=== PATIENT | male | born 1955 | race Caucasian/White ===

== ENCOUNTER 2019-08-19 18:43 | Inpatient (IN) ==
[2019-08-19] MEDS ORDERED: MoRPHine SULFATE 4 MG/ML 1 ML CARP\\VIAL IV PRN (19:02)
[2019-08-19] MEDS ORDERED: MoRPHine SULFATE 10 MG/ML CARP/VIAL IV STA (19:02)
[2019-08-19] MEDS ORDERED: ACETAMINOPHEN 1,000 MG/100 ML VIAL IV STA (19:06)
[2019-08-19] MEDS ORDERED: PROMETHAZINE HCL 12.5 MG in SODIUM CHLORIDE 0.9% 50 ML IV STA (19:07)
[2019-08-19] MEDS ORDERED: SODIUM CHLORIDE 0.9% 500 ML IV SCH (19:15)
[2019-08-19] MEDS ORDERED: PROMETHAZINE 12.5 MG/50.5 ML NSS IV ONE (19:29)
[2019-08-19 19:57] LABS: Basophils # (auto) 0.02 K/uL (0-0.2); Basophils % (auto) 0.3 %; Eosinophils # (auto) 0.11 K/uL (0-0.5); Eosinophils % (auto) 1.9 %; Hematocrit (blood only) 43.6 % (42-52); Hemoglobin 14.5 g/dL (14.0-18.0); Lymphocytes # (auto) 1.32 K/uL (1.2-3.4); Lymphocytes % (auto) 22.4 %; Mean Corpuscular Hemoglobin 27.3 pg (25-34); Mean Corpuscular Hgb Conc 33.3 g/dL (32-36); Mean Platelet Volume 9.2 fL (7.4-10.4); Monocytes % (auto) 6.8 %; Neutrophils # (auto) 4.04 K/uL (1.4-6.5); Neutrophils % (auto) 68.6 %; Platelet Count 229 K/uL (130-400); RDW Standard Deviation 41.9 fL (36.4-46.3); Red Blood Count 5.32 M/uL (4.7-6.1); White Blood Count 5.89 K/uL (4.8-10.8)
--- NOTE | 2019-08-19 20:06 | Emergency Department Note ---
Entered by Kimberly Ceron acting as a scribe for History of Present Illness General Chief complaint: Kidney Stone Stated complaint: ABD PAIN Time Seen by Provider: 08/19/19 18:53 Source: patient Mode of arrival: ambulatory Limitations: no limitations History of Present Illness Provider complaint: Kidney stone Onset (ago): day(s) 9 Location: abdomen Radiation: non-radiation Pain Consistency: + other (worsening) Maximum Pain Intensity: 10 Current Pain Intensity: 10 Quality: + other (kidney stone) Associated symptoms: + other (Additional symptoms: abdominal bloating, abnormal bowel movements, dark and burning urine); no nausea/vomiting Treatments prior to arrival: none The patient is a 63 year old male with a history of COPD, hypertension, restless leg syndrome, and chronic back pain who presents to the Emergency Room with complaints of a worsening kidney stone starting 9 days ago. Per the patient's medical records, the patient was diagnosed with a 7 mm stone in the right renal pelvis on August 09. The patient then reportedly saw urology on August 12 and was scheduled for a lithotripsy on August 21. The patient explains that he came to the ED today because his pain is worsening. He states that his pain is worse than the pain that brought him in 9 days ago and that is located all over his abdomen, worse on the right. He notes that it does not radiate to the back, and he currently rates it a 10/10. He mentions that he has not taken anything for his pain. The patient also complains of abdominal bloating, abnormal bowel movements, and dark, burning urine. He denies any nausea and vomiting. Per significant other, this episode has been ongoing since April. She reports that the patient has been intermittently passing stones but not getting everything out. The patient predicts that he has had 4-5 CTs since April, and he indicates that he has passed 6 kidney stones in his lifetime but never had intervention or lithotripsy. He states that he is currently on Cefdinir for UTI prevention. Home Medications Home Medications Medication Instructions Recorded Confirmed Type albuterol sulfate [Ventolin HFA] 2 puff INHALATION Q6H PRN 08/10/19 08/19/19 History amlodipine 5 mg PO QAM 08/10/19 08/19/19 History aspirin 81 mg PO .ON HOLD 08/10/19 08/19/19 History cefdinir 300 mg PO BID #20 cap 08/10/19 08/19/19 Rx cholecalciferol (vitamin D3) 2,000 unit PO QAM 08/10/19 08/19/19 History [Vitamin D3] fluticasone furoate-vilanterol 1 ea INHALATION QAM 08/10/19 08/19/19 History [Breo Ellipta] ibuprofen 200 mg PO Q6H PRN 08/10/19 08/19/19 History naproxen sodium [Aleve] 220 mg PO Q12H PRN 08/10/19 08/19/19 History omeprazole 20 mg PO QAM 08/10/19 08/19/19 History oxycodone 5 mg PO Q6H PRN #15 cap 08/10/19 08/19/19 Rx ropinirole 0.5 mg PO HS 08/10/19 08/19/19 History tamsulosin 0.4 mg capsule 0.4 mg PO HS #30 cap 08/13/19 08/19/19 Rx Allergies Allergy/AdvReac Type Severity Reaction Status Date / Time No Known Allergies Allergy Verified 08/13/19 15:24 Past Med/Surg History Medical History Adverse anesthesia outcome SEVERE NECK PAIN POST BACK SURGERY Chronic back pain COPD (chronic obstructive pulmonary disease) Hypertension Kidney stones CURRENT Restless leg syndrome Spinal stenosis Surgical History H/O hernia repair History of spinal surgery Hx of repair of left rotator cuff Hx of repair of right rotator cuff Family History Father Heart disease [place] Hypertension Mother Cancer Brain Sister Cancer Lung Social History Preferred Language: Greek Communication Ability: Effective Beliefs That Will Affect Care: None marital status: Current Living Situation: Spouse current occupational status: retired Feels Safe at Home: Yes Smoking Status: Former smoker Tobacco Type: cigarettes ; Hx Alcohol Use: Yes Alcohol type: beer and hard liquor Hx Substance Use: No Review of Systems See HPI for pertinent positives & negatives. and A total of 10 systems reviewed and were otherwise negative Physical Exam Vital Signs Vital Signs - 24 hr 08/19/19 18:46 08/19/19 19:03 08/19/19 20:43 Temperature 37.1 C Temperature Source Oral Pulse Rate 93 H Pulse Rate [Apical] 80 Pulse Rhythm [Apical] Regular Pulse Strength [Apical] Normal Respiratory Rate 18 20 Respiratory Effort / Characteristics Non-Labored Spontaneous Non-Labored Spontaneous Respiratory Depth Normal Respiratory Pattern Regular Blood Pressure 166/118 H Blood Pressure [Left Arm] 158/107 H Blood Pressure Mean 134 Blood Pressure Mean [Left Arm] 124 Blood Pressure Position Sitting Blood Pressure Position [Left Arm] Sitting Pulse Oximetry 96 98 98 Oxygen Delivery Method Room Air Room Air Room Air Sepsis Recent Fever Within 48 Hours No Sepsis New/Unexplained Change in Mental Status No Sepsis Action Taken by Nursing No Action Required GENERAL: Patient is in mild distress from pain. HEENT: No acute trauma, normocephalic atraumatic, mucous membranes moist, no nasal congestion, no scleral icterus. NECK: No stridor, no adenopathy, no meningismus, trachea is midline. LUNGS: Clear to auscultation bilaterally, no wheeze, no rhonchi, breath sounds equal. HEART: Without murmurs gallops or rubs, regular rate and rhythm. ABDOMEN: Soft, bowel sounds positive, no hernias, no peritonitis. Mildly tender along entire right and mid abdomen. BACK: Mild right flank discomfort to percussion. EXTREMITIES: No cyanosis or edema, full range of motion of all the joints without pain or difficulty, no signs for acute trauma. NEUROLOGIC: Oriented x 3, no acute motor or sensory deficits, no focal weakness. SKIN: No rash, no jaundice, no diaphoresis. Course Course 1856: The patient was evaluated in room A4B, and a complete history and physical examination were performed. 2138: I checked on the patient and updated him on his results. He verbalized agreement with the treatment plan. 2151: I discussed the patient's case with Dr. Alexandre Garcia. Dr. Schroeder will evaluate the patient for further management. Consultations Consultation #1: I discussed the patient's case with Dr. Alexandre Garcia. Dr. Schroeder will evaluate the patient for further management. Time: 21:52 Administered Medications Discontinued Medications Sodium Chloride (Nss) 500 mls @ 999 mls/hr IV .Q31M CARMEN Stop: 08/19/19 19:45 Last Infusion: 08/19/19 20:18 Dose: 0 mls/hr Documented by: [id number] Admin: 08/19/19 19:41 Dose: 999 mls/hr Documented by: [id number] Acetaminophen (Ofirmev) 1,000 mg in 100 mls @ 400 mls/hr IV NOW STA Stop: 08/19/19 19:20 Last Infusion: 08/19/19 20:18 Dose: 0 mls/hr Documented by: [id number] Admin: 08/19/19 19:39 Dose: 400 mls/hr Documented by: [id number] Promethazine HCl 12.5 mg/ (Sodium Chloride) 50.5 mls @ 202 mls/hr IV NOW STA Stop: 08/19/19 19:21 Last Infusion: 08/19/19 20:20 Dose: 0 mls/hr Documented by: [id number] Admin: 08/19/19 19:38 Dose: 202 mls/hr Documented by: [id number] Morphine Sulfate (Morphine Sulfate) 6 mg IV NOW STA Stop: 08/19/19 19:03 Last Admin: 08/19/19 19:39 Dose: 6 mg Documented by: [id number] Promethazine HCl (Phenergan) Confirm Administered Dose 12.5 mg IV .STK-MED ONE Stop: 08/19/19 19:30 Last Admin: 08/19/19 19:40 Dose: Not Given Documented by: [id number] Medical Decision Making Differential Diagnosis Differential diagnosis includes: renal colic, hydronephrosis, UTI, diverticulitis, viral illness, bowel obstruction, pancreatitis, musculoskeletal pain, IBD, failed outpatient treatment. Medical Records Attestation: I reviewed the patient's medical records. Home Medications Current Medication List: was personally reviewed by me Laboratory Data Attestation: I reviewed the patient's lab results. Result diagrams: 08/19/19 19:41 08/19/19 19:41 Lab Results 08/19/19 08/19/19 08/19/19 Range/Units 19:41 19:41 19:41 WBC 5.89 (4.8-10.8) K/uL RBC 5.32 (4.7-6.1) M/uL Hgb 14.5 (14.0-18.0) g/dL Hct 43.6 (42-52) % MCV 82.0 (80-100) fL MCH 27.3 (25-34) pg MCHC 33.3 (32-36) g/dL RDW Std Deviation 41.9 (36.4-46.3) fL RDW Coeff of Camryn 14.0 (11.5-14.5) % Plt Count 229 (130-400) K/uL MPV 9.2 (7.4-10.4) fL Immature Gran % (Auto) 0.0 % Neut % (Auto) 68.6 % Lymph % (Auto) 22.4 % Nuckolls % (Auto) 6.8 % Eos % (Auto) 1.9 % Baso % (Auto) 0.3 % Immature Gran # (Auto) 0.00 (0.00-0.02) K/uL Neut # (Auto) 4.04 (1.4-6.5) K/uL Lymph # (Auto) 1.32 (1.2-3.4) K/uL [place] # (Auto) 0.40 (0.11-0.59) K/uL Eos # (Auto) 0.11 (0-0.5) K/uL Baso # (Auto) 0.02 (0-0.2) K/uL Sodium 138 (136-145) mmol/L Potassium 3.4 L (3.5-5.1) mmol/L Chloride 102 (98-107) mmol/L Carbon Dioxide 29 (21-32) mmol/L Anion Gap 7.0 (3-11) BUN 12 (7-18) mg/dl Creatinine 0.99 (0.6-1.4) mg/dl Est Cr Clr Drug Dosing 99.8 ml/min Est GFR ( Amer) 92.9 Est GFR (Non-Af Amer) 80.2 BUN/Creatinine Ratio 12.1 (10-20) Glucose 181 H (70-99) mg/dl Lactate 1.8 (0.4-2.0) mmol/L Calcium 9.6 (8.5-10.1) mg/dl Total Bilirubin 0.2 (0.2-1) mg/dl AST 32 (15-37) U/L ALT 60 (12-78) U/L Alkaline Phosphatase 72 (45-117) U/L Troponin I < 0.015 (0-0.045) ng/ml Total Protein 7.6 (6.4-8.2) gm/dl Albumin 3.2 L (3.4-5.0) gm/dl Globulin 4.4 H (2.5-4.0) gm/dl Albumin/Globulin Ratio 0.7 L (0.9-2) Lipase 42 L (73-393) U/L Urine Color Urine Appearance (Clear) Urine pH (4.5-7.5) Ur Specific [place] (1.000-1.030) Urine Protein (Negative) Urine Glucose (UA) (Negative) Urine Ketones (Negative) Urine Blood (Negative) Urine Nitrite (Negative) Urine Bilirubin (Negative) Urine Urobilinogen (Negative) Ur Leukocyte Esterase (Negative) Urine WBC (Auto) (0-5) /hpf Urine RBC (Auto) (0-4) /hpf U Hyaline Cast (Auto) (0-5) /lpf U Epithel Cells (Auto) (0-5) /lpf Urine Bacteria (Auto) (Negative) 08/19/19 Range/Units 21:03 WBC (4.8-10.8) K/uL RBC (4.7-6.1) M/uL Hgb (14.0-18.0) g/dL Hct (42-52) % MCV (80-100) fL MCH (25-34) pg MCHC (32-36) g/dL RDW Std Deviation (36.4-46.3) fL RDW Coeff of Camryn (11.5-14.5) % Plt Count (130-400) K/uL MPV (7.4-10.4) fL Immature Gran % (Auto) % Neut % (Auto) % Lymph % (Auto) % [place] % (Auto) % Eos % (Auto) % Baso % (Auto) % Immature Gran # (Auto) (0.00-0.02) K/uL Neut # (Auto) (1.4-6.5) K/uL Lymph # (Auto) (1.2-3.4) K/uL [place] # (Auto) (0.11-0.59) K/uL Eos # (Auto) (0-0.5) K/uL Baso # (Auto) (0-0.2) K/uL Sodium (136-145) mmol/L Potassium (3.5-5.1) mmol/L Chloride (98-107) mmol/L Carbon Dioxide (21-32) mmol/L Anion Gap (3-11) BUN (7-18) mg/dl Creatinine (0.6-1.4) mg/dl Est Cr Clr Drug Dosing ml/min Est GFR ( Amer) Est GFR (Non-Af Amer) BUN/Creatinine Ratio (10-20) Glucose (70-99) mg/dl Lactate (0.4-2.0) mmol/L Calcium (8.5-10.1) mg/dl Total Bilirubin (0.2-1) mg/dl AST (15-37) U/L ALT (12-78) U/L Alkaline Phosphatase (45-117) U/L Troponin I (0-0.045) ng/ml Total Protein (6.4-8.2) gm/dl Albumin (3.4-5.0) gm/dl Globulin (2.5-4.0) gm/dl Albumin/Globulin Ratio (0.9-2) Lipase (73-393) U/L Urine Color Yellow Urine Appearance Clear (Clear) Urine pH 6.5 (4.5-7.5) Ur Specific [place] 1.022 (1.000-1.030) Urine Protein 1+ H (Negative) Urine Glucose (UA) Negative (Negative) Urine Ketones Negative (Negative) Urine Blood 2+ H (Negative) Urine Nitrite Negative (Negative) Urine Bilirubin Negative (Negative) Urine Urobilinogen Negative (Negative) Ur Leukocyte Esterase Negative (Negative) Urine WBC (Auto) 1-5 (0-5) /hpf Urine RBC (Auto) >30 H (0-4) /hpf U Hyaline Cast (Auto) 1-5 (0-5) /lpf U Epithel Cells (Auto) 10-20 H (0-5) /lpf Urine Bacteria (Auto) Negative (Negative) Imaging Data Radiologist's Impression: Radiology results as stated below per my review and the radiologist's interpretation: CT abd pelvis wo con CLINICAL HISTORY: 63 years-old Male presenting with worsening flank pain. TECHNIQUE: Multidetector CT of the abdomen and pelvis was performed without the use of intravenous contrast. IV contrast: None. One or more dose lowering techniques were used consistent with the principles of ALARA (as low as reasonably achievable), including automatic exposure control, mA or kV adjustment to individual patient size, and/or use of iterative reconstruction. COMPARISON: 08/10/2019 CT DOSE (mGy.cm): The estimated cumulative dose is 2136.27 mGy.cm. FINDINGS: Shipping Receiving Manager topogram: Unremarkable. Lung bases: Normal heart size. No pericardial or pleural effusion. Redemonstration of the solid 8 mm nodule in the left lower lobe (series 4 image 4). Liver: Normal morphology. Density consistent with hepatic steatosis. Biliary: No gross biliary ductal dilatation allowing for noncontrast technique. Gallbladder decompressed. Pancreas: Mild parenchymal atrophy. Spleen: Normal noncontrast appearance. Adrenal glands: Normal noncontrast appearance. Kidneys and ureters: Bilateral nonobstructing nephrolithiasis. Additionally, redemonstration of the nonobstructing 7 mm calculus in the right renal pelvis with mild associated urothelial thickening. Ureters nondistended. No ureteral calculi. Bladder: Normal noncontrast appearance. Pelvic organs: Normal noncontrast appearance. Bowel: Diverticulosis in the mid to distal sigmoid colon without wall thickening or pericolonic inflammatory change. Mild diverticulosis of the ascending colon. The appendix is normal. No bowel obstruction. Feces noted in a loop of mid ileum (series 4 image 310), new from prior. No associated transition point. Mild regional small bowel wall thickening may be present (series 4 image 322). Trace perienteric fat ulceration may also be present. Peritoneal cavity: No free fluid or intraperitoneal gas. Lymph nodes: No gross lymphadenopathy allowing for noncontrast technique. Cystic lesion along the left aspect of the distal aorta and left common iliac artery, which is grossly simple appearing and with a grossly thickened wall. This measures 8.6 x 6.8 cm and does not appear to exert significant mass effect on surrounding structures. Vasculature: Atherosclerosis of the normal caliber abdominal aorta. Abdominal wall: Small bilateral fat-containing inguinal hernias suspected. Musculoskeletal: Degenerative changes of the spine. IMPRESSION: 1. Subtle findings suggesting enteritis, likely infectious or inflammatory. 2. Stable appearance of the nonobstructing bilateral nephrolithiasis. Dominant right renal calculus in the right renal pelvis with mild associated urothelial thickening, likely chronic reactive change. 3. Diverticulosis coli. No diverticulitis. 4. Stable appearance of the cystic left periaortic lesion likely representing a lymphocele. The same differential consideration remains as given on the recent exam. A contrast-enhanced study would be beneficial. Attention on follow-up. 5. Hepatic steatosis. 6. Solid 8 mm left lower lobe pulmonary nodule. Follow-up per Fleischner Society 2017 recommendations given on the prior exam. ACT 112: Negative or not required by law. Electronically signed by: Slade Sharpe M.D. 08/19/2019 8:16 PM ECG Data Attestation: I personally reviewed and interpreted this ECG as follows: Indication: + other (kidney stone) Rate (beats per minute): 80 Rhythm: + normal sinus ECG ST segments: no ST elevation ECG Findings: + Other (QT-c is 440); no PVCs Blood Pressure Blood Pressure Findings: Elevated blood pressure Blood Pressure Disposition: further management by hospitalist [facility] Narrative There is no leukocytosis or concerning anemia. No significant electrolyte abnormality or kidney failure. Lactic acid level is not elevated making bowel ischemia/sepsis less likely. No worrisome liver enzyme elevation. No evidence for pancreatitis. EKG shows a sinus rhythm, no acute ischemia. Cardiac enzyme testing x1 is not consistent with acute cardiac injury. Urinalysis shows hematuria, no evidence for infection. Abdominal and pelvis CT shows some enteritis, there was no bowel obstruction, no evidence for diverticulitis, he does have some renal stones but there was no hydronephrosis or ureteral calculi. On my exam, there was no peritonitis, the patient was not febrile. The patient received IV saline for hydration. He received IV Tylenol for pain, IV morphine for pain, a few doses of morphine were required. He was given IV Phenergan for nausea. The patient does feel improved with the above medication but still has some abdominal discomfort. The patient presents with ongoing abdominal pain now for months. He has been in and out of different emergency departments, he has been seen by urology. His pain is worse today than ever before. He appears to have some enteritis on CT imaging and a lot of his discomfort may in fact be GI related. I do think further work-up in the hospital is warranted. The patient does not feel comfortable being discharged home. I did speak to the patient and dependency case manager. The on-call hospitalist was consulted. Continuous Cardiac Monitoring: An order was placed for continuous cardiac monitoring. The monitor shows a rate of 80 with normal sinus rhythm. Impression & Plan Diffuse abdominal pain, Kidney stones, Hematuria, Enteritis, Failure of outpatient treatment Discharge Plan Visit Data Chief Complaint: Kidney Stone Stated Complaint: ABD PAIN ED Provider: Itz Noriega Discharge Problem: Diffuse abdominal pain, Kidney stones, Hematuria, Enteritis, Failure of outpatient treatment Patient Disposition: Admitted As Inpatient Forms Stand Alone Forms: My [facility] Prescriptions Prescriptions: No Action tamsulosin 0.4 mg capsule 0.4 mg PO HS Qty: 30 RF: 2 amlodipine 5 mg tablet 5 mg PO QAM RF: 0 aspirin 81 mg Tablet,Delayed Release (Dr/Ec) 81 mg PO .ON HOLD RF: 0 ropinirole 0.5 mg tablet 0.5 mg PO HS RF: 0 naproxen sodium [Aleve] 220 mg Tablet 220 mg PO Q12H PRN (Reason: Pain) RF: 0 ibuprofen 200 mg Tablet 200 mg PO Q6H PRN (Reason: Pain) RF: 0 albuterol sulfate [Ventolin HFA] 90 mcg/actuation HFA aerosol inhaler 2 puff INHALATION Q6H PRN (Reason: Wheezing) RF: 0 omeprazole 20 mg Tablet,Delayed Release (Dr/Ec) 20 mg PO QAM RF: 0 cholecalciferol (vitamin D3) [Vitamin D3] 50 mcg (2,000 unit) Capsule 2,000 unit PO QAM RF: 0 Breo Ellipta 200-25 mcg/dose blister with device 1 ea INHALATION QAM RF: 0 cefdinir 300 mg capsule 300 mg PO BID Qty: 20 RF: 0 oxycodone 5 mg capsule 5 mg PO Q6H PRN (Reason: pain) Qty: 15 RF: 0 Referrals Referrals: Poonam Haddad PA-C [Primary Care Provider] - Discharge Problem: Hematuria Qualifiers: Hematuria type: unspecified type Qualified Code(s): R31.9 - Hematuria, unspecified The scribe's documentation has been prepared under my direction and personally reviewed by me in its entirety. I confirm that the note above accurately reflects all work, treatment, procedures, and medical decision making performed by me.
[2019-08-19 20:14] LABS: Alanine Aminotransferase 60 U/L (12-78); Albumin Level 3.2 gm/dl (3.4-5.0); Aspartate Aminotransferase 32 U/L (15-37); BUN Creatinine Ratio 12.1 (10-20); Blood Urea Nitrogen 12 mg/dl (7-18); Calcium 9.6 mg/dl (8.5-10.1); Carbon Dioxide 29 mmol/L (21-32); Chloride 102 mmol/L (98-107); Creatinine Clr Calc Pharmacy 99.8 ml/min; Est GFR (African American) 92.9; Est GFR (Non-African American) 80.2; Glucose 181 mg/dl (70-99); Lipase 42 U/L (73-393); Potassium 3.4 mmol/L (3.5-5.1); Sodium 138 mmol/L (136-145)
--- NOTE | 2019-08-19 20:17 | CT Scan Report ---
CT abd pelvis wo con CLINICAL HISTORY: 63 years-old Male presenting with worsening flank pain. TECHNIQUE: Multidetector CT of the abdomen and pelvis was performed without the use of intravenous co ntrast. IV contrast: None. One or more dose lowering techniques were used consistent with the princip les of ALARA (as low as reasonably achievable), including automatic exposure control, mA or kV adjust ment to individual patient size, and/or use of iterative reconstruction. COMPARISON: 08/10/2019 CT DOSE (mGy.cm): The estimated cumulative dose is 2136.27 mGy.cm. FINDINGS: Rod Greaser topogram: Unremarkable. Lung bases: Normal heart size. No pericardial or pleural effusion. Redemonstration of the solid 8 mm nodule in the left lower lobe (series 4 image 4). Liver: Normal morphology. Density consistent with hepatic steatosis. Biliary: No gross biliary ductal dilatation allowing for noncontrast technique. Gallbladder decompres sed. Pancreas: Mild parenchymal atrophy. Spleen: Normal noncontrast appearance. Adrenal glands: Normal noncontrast appearance. Kidneys and ureters: Bilateral nonobstructing nephrolithiasis. Additionally, redemonstration of the n onobstructing 7 mm calculus in the right renal pelvis with mild associated urothelial thickening. Ure ters nondistended. No ureteral calculi. Bladder: Normal noncontrast appearance. Pelvic organs: Normal noncontrast appearance. Bowel: Diverticulosis in the mid to distal sigmoid colon without wall thickening or pericolonic infla mmatory change. Mild diverticulosis of the ascending colon. The appendix is normal. No bowel obstruct ion. Feces noted in a loop of mid ileum (series 4 image 310), new from prior. No associated transitio n point. Mild regional small bowel wall thickening may be present (series 4 image 322). Trace perient amalia fat ulceration may also be present. Peritoneal cavity: No free fluid or intraperitoneal gas. Lymph nodes: No gross lymphadenopathy allowing for noncontrast technique. Cystic lesion along the lef t aspect of the distal aorta and left common iliac artery, which is grossly simple appearing and with a grossly thickened wall. This measures 8.6 x 6.8 cm and does not appear to exert significant mass e ffect on surrounding structures. Vasculature: Atherosclerosis of the normal caliber abdominal aorta. Abdominal wall: Small bilateral fat-containing inguinal hernias suspected. Musculoskeletal: Degenerative changes of the spine. IMPRESSION: 1. Subtle findings suggesting enteritis, likely infectious or inflammatory. 2. Stable appearance of the nonobstructing bilateral nephrolithiasis. Dominant right renal calculus in the right renal pelvis with mild associated urothelial thickening, likely chronic reactive change. 3. Diverticulosis coli. No diverticulitis. 4. Stable appearance of the cystic left periaortic lesion likely representing a lymphocele. The same differential consideration remains as given on the recent exam. A contrast-enhanced study would be b eneficial. Attention on follow-up. 5. Hepatic steatosis. 6. Solid 8 mm left lower lobe pulmonary nodule. Follow-up per Fleischner Society 2017 recommendation s given on the prior exam. ACT 112: Negative or not required by law. Electronically signed by: Slade Sharpe M.D. 08/19/2019 8:16 PM
[2019-08-19 20:19] LABS: Albumin Globulin Ratio 0.7 (0.9-2); Alkaline Phosphatase 72 U/L (45-117); Bilirubin,Total 0.2 mg/dl (0.2-1); Globulin 4.4 gm/dl (2.5-4.0); Total Protein 7.6 gm/dl (6.4-8.2); Troponin I < 0.015 ng/ml (0-0.045)
[2019-08-19 21:24] LABS: Appearance Urine Clear (Clear); Bacteria Urine Automated Negative (Negative); Bilirubin Urine Negative (Negative); Blood Urine 2+ (Negative); Color Urine Yellow; Glucose Urine UA Negative (Negative); Ketones Urine Negative (Negative); Leukocyte Esterase Urine Negative (Negative); Nitrite Urine Negative (Negative); Protein Urine 1+ (Negative); RBC Urine Automated >30 /hpf (0-4); Specific Gravity Urine 1.022 (1.000-1.030); Urobilinogen Urine Negative (Negative); pH Urine 6.5 (4.5-7.5)
--- NOTE | 2019-08-19 22:16 | History & Physical Report ---
Date of Service August 19, 2019 Assessment & Plan (1) Diffuse abdominal pain: Mich Billy is 63-year-old male with past medical history of hypertension, COPD, nephrolithiasis who is here today for several hours of intense abdominal pain Abdominal pain Patient with extreme abdominal pain that started this afternoon after ingestion of several hotdogs and a banana split, Vital signs significant only for hypertension, afebrile No white count negative lactate, negative lipase, LFTs normal CT scan with evidence of enteritis, and nonobstructing renal calculi Due to change in nature of pain, believe this is more likely secondary to enteritis then to nephrolithiasis Treating supportively, n.p.o., IV fluids, pain management with morphine at present, patient with history of parasites in stool treated at home with ivermectin We will get stool culture, stool ova and parasites, and stool white blood cell count Renal stones Patient with known renal stone scheduled for lithotripsy later this week Possible that this is the cause of his pain, patient is having hematuria at present greater than 30 red blood cells per high-power field Urology not consulted at this time as patient feels this is a different sort of pain than his nephrolithiasis On cefdinir for infection prophylaxis COPD Former smoker quit in 2012 after smoking most of his life, mild COPD not on any oxygen at home oxygenating well at present Hypertension We will continue home amlodipine F/E/N: N.p.o. normal saline 120/h DVT prophylaxis: Lovenox 40 mg Disco: MedSurg for supportive care stool studies and pain management Full code (2) Kidney stones: (3) Hematuria: (4) Enteritis: (5) Failure of outpatient treatment: (6) Abdominal pain: History of Present Illness Primary Care Provider: Poonam Haddad PA-C Patient has been dealing with kidney stone issues for some time, lithotripsy planned for Sunday. 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 Patient felt the pain was much more severe than his kidney stone pain. He laid in bed and hoped it would pass but it did not, he didn't have anything that could kill the pain so he decided to come in to hospital. He did take one oxycodone in the morning. Here in emergency department he was given IV morphine and that completely took care of the pain. 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 Patient and say they were not surprised by this as he eats a large amount of sushi. treated him with a course of ivermectin she has for her cows. He described pain as being central and epigastric cramping type pain, very severe, screaming out. He has had no nausea, vomiting, diarrhea, chest pain, shortness of breath, skin lesions, headache, body aches or any other concerning symptoms. He is still making normal urine. He is currently pain free but heavily medicated and falling asleep intermittently which partially affected my review of systems breadth. Allergies Allergy/AdvReac Type Severity Reaction Status Date / Time No Known Allergies Allergy Verified 08/13/19 15:24 Home Medications Home Medications Medication Instructions Recorded Confirmed Type albuterol sulfate [Ventolin HFA] 2 puff INHALATION Q6H PRN 08/10/19 08/19/19 History amlodipine 5 mg PO QAM 08/10/19 08/19/19 History aspirin 81 mg PO .ON HOLD 08/10/19 08/19/19 History cefdinir 300 mg PO BID #20 cap 08/10/19 08/19/19 Rx cholecalciferol (vitamin D3) 2,000 unit PO QAM 08/10/19 08/19/19 History [Vitamin D3] fluticasone furoate-vilanterol 1 ea INHALATION QAM 08/10/19 08/19/19 History [Breo Ellipta] ibuprofen 200 mg PO Q6H PRN 08/10/19 08/19/19 History naproxen sodium [Aleve] 220 mg PO Q12H PRN 08/10/19 08/19/19 History omeprazole 20 mg PO QAM 08/10/19 08/19/19 History oxycodone 5 mg PO Q6H PRN #15 cap 08/10/19 08/19/19 Rx ropinirole 0.5 mg PO HS 08/10/19 08/19/19 History tamsulosin 0.4 mg capsule 0.4 mg PO HS #30 cap 08/13/19 08/19/19 Rx Past Med/Surg History Medical History Adverse anesthesia outcome SEVERE NECK PAIN POST BACK SURGERY Chronic back pain COPD (chronic obstructive pulmonary disease) Hypertension Kidney stones CURRENT Restless leg syndrome Spinal stenosis Surgical History H/O hernia repair History of spinal surgery Hx of repair of left rotator cuff Hx of repair of right rotator cuff Family History Father Heart disease IN Hypertension Mother Cancer Brain Sister Cancer Lung Social History Preferred Language: Belgian Communication Ability: Effective Analysis Consultant Required: No Beliefs That Will Affect Care: None marital status: Current Living Situation: Spouse current occupational status: retired Feels Safe at Home: Yes Smoking Status: Former smoker Tobacco Type: cigarettes ; Do You Dip or Chew Tobacco: No ; Hx Alcohol Use: Yes Alcohol type: beer and hard liquor Hx Substance Use: Yes substance use type: former substance user and crack/cocaine Review of Systems Review of Systems: All systems reviewed & are unremarkable except as noted in HPI & below Physical Exam Physical Exam: Constitutional: 63-year-old gentleman lying in bed, obviously somnolent and falling asleep in and out of our conversation. No apparent distress at this time Eyes: Extraocular muscle movements intact bilaterally ENMT: No abnormalities detected Respiratory: Chest expansion equal bilaterally, no increased work of breathing, breath sounds vesicular globally Cardiovascular: Regular rate regular rhythm, normal S1-S2 on auscultation, no murmurs rubs skips or gallops, no lower limb edema, normal PMI GI: Abdomen soft, mildly globally tender, Morton sign negative, bowel sounds in all 4 quadrants, no rebound tenderness, no masses, no hepatomegaly Skin: Skin warm dry and intact, no lesions appreciable Results & Data Vital Signs (Past 12 Hours) Vital Signs Temp Pulse Pulse Resp BP BP Pulse Ox 08/19/19 20:43 80 20 158/107 H 98 08/19/19 19:03 98 08/19/19 18:46 37.1 C 93 H 18 166/118 H 96 Supervising Physician Co-Signing Physician Notes Patient seen and examined, chart reviewed, case discussed with Dr. Kowalski and agree with his assessment and plan as documented above. Briefly, patient is a 63-year-old male presenting with abdominal pain. He has a presumed history of parasitic infection, passed some worms in his stool approximately 5 months ago. His treated him with ivermectin x3 doses. On exam he is afebrile, hemodynamically stable, somnolent after receiving pain medications but arousable, answering questions and following commands Skinwarm, dry, no rashes/lesions HEENTnormocephalic/atraumatic, pupils small and reactive, neck supple Heart+ S1, S2, regular, no murmur/rub/gallops Lungequal air entry bilaterally, no rales/rhonchi/wheezes Abdomen+ bowel sounds, soft, mildly distended, nontender to palpation, no organomegaly/ascites Extremitieswarm, well-perfused, palpable pulses Labs and images reviewed. No leukocytosis, lactate normal at 1.8, LFTs are normal. UA with 2+ blood CT of the abdomen and pelvis with findings suggestive of enteritis, infectious versus inflammatory as well as stable nonobstructing bilateral nephrolithiasis. Solid 8 mm left lower lobe nodule Assessment/plansequela male with lower abdominal pain most likely secondary to enteritis, question significance of prior parasite? Stool studies O&P, fecal leukocytes Pain control and supportive care Remainder of plan as above Resident Activity Tracking Resident Involvement: Resident Care Provided Care Provided: Adult Hospital Medicine (1) Hematuria Hematuria type: unspecified type Qualified Code(s): R31.9 - Hematuria, unspecified (2) Abdominal pain Abdominal location: right upper quadrant Qualified Code(s): R10.11 - Right upper quadrant pain
[2019-08-19] MEDS: MoRPHine SULFATE 4 MG/ML 1 ML CARP\\VIAL IV PRN (22:50)
[2019-08-19] MEDS ORDERED: ALBUTEROL HFA 8 GM INHALER INH PRN (23:34)
[2019-08-19] MEDS: SODIUM CHLORIDE 0.9% 1000ML 1,000 ML IV SCH (23:49)
[2019-08-19] MEDS: POTASSIUM CHLORIDE / WTR 10 MEQ/100 ML PLCT IV SCH (23:49)
[2019-08-20] MEDS: POTASSIUM CHLORIDE / WTR 10 MEQ/100 ML PLCT IV SCH (00:44)
[2019-08-20] MEDS: MoRPHine SULFATE 4 MG/ML 1 ML CARP\\VIAL IV PRN ×7 (01:55→23:12)
--- NOTE | 2019-08-20 05:10 | Billing Data ---
Date of Service August 20, 2019 Coding Level of Care Code 20447 OBS Care - Level 3
[2019-08-20] MEDS: SODIUM CHLORIDE 0.9% 1000ML 1,000 ML IV SCH ×3 (07:47→23:13)
[2019-08-20] MEDS: ENOXAPARIN INJ 40 MG/0.4 ML SYR SQ SCH (08:15)
[2019-08-20] MEDS: AMLODIPINE BESYLATE 5 MG TAB PO SCH (08:16)
[2019-08-20] MEDS: CEFDINIR 300 MG CAP PO SCH ×2 (08:16→20:40)
[2019-08-20] MEDS: FLUTICASONE/VILANTEROL 200/25MCG 14 PUFFS/INHALER INH SCH (08:16)
[2019-08-20] MEDS: PANTOprazole 40 MG TAB PO SCH (08:16)
[2019-08-20] MEDS: CHOLECALCIFEROL 1,000 UNITS 25 MCG TAB PO SCH (08:16)
[2019-08-20] MEDS: ONDANSETRON INJ 2 MG/ML 2 ML VIAL IV PRN ×2 (08:20→23:19)
[2019-08-20] MEDS ORDERED: ASPIRIN 81 MG ECTAB PO SCH (09:00)
[2019-08-20] MEDS ORDERED: ACETAMINOPHEN 500 MG TAB PO PRN (09:14)
[2019-08-20] MEDS ORDERED: POLYETHYLENE (MIRALAX) 17 GM PACK PO SCH (09:30)
[2019-08-20] MEDS: KETOROLAC TROMETHAMINE 15 MG/ML VIAL IV PRN ×2 (09:31→18:19)
[2019-08-20] MEDS ORDERED: POLYETHYLENE (MIRALAX) 17 GM PACK PO ONE ×2 (14:31→18:45)
[2019-08-20] MEDS ORDERED: DOCUSATE SODIUM 100 MG CAP PO ONE (15:21)
--- NOTE | 2019-08-20 15:29 | Discharge Summary ---
Date of Service August 21, 2019 Admission HPI Per Admitting Provider Patient has been dealing with kidney stone issues for some time, lithotripsy planned for Sunday. 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 Patient felt the pain was much more severe than his kidney stone pain. He laid in bed and hoped it would pass but it did not, he didn't have anything that could kill the pain so he decided to come in to hospital. He did take one oxycodone in the morning. Here in emergency department he was given IV morphine and that completely took care of the pain. 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 Patient and say they were not surprised by this as he eats a large amount of sushi. treated him with a course of ivermectin she has for her cows. He described pain as being central and epigastric cramping type pain, very severe, screaming out. He has had no nausea, vomiting, diarrhea, chest pain, shortness of breath, skin lesions, headache, body aches or any other concerning symptoms. He is still making normal urine. He is currently pain free but heavily medicated and falling asleep intermittently which partially affected my review of systems breadth. Admission Exam Per Admitting Provider Constitutional: 63-year-old gentleman lying in bed, obviously somnolent and falling asleep in and out of our conversation. No apparent distress at this time Eyes: Extraocular muscle movements intact bilaterally ENMT: No abnormalities detected Respiratory: Chest expansion equal bilaterally, no increased work of breathing, breath sounds vesicular globally Cardiovascular: Regular rate regular rhythm, normal S1-S2 on auscultation, no murmurs rubs skips or gallops, no lower limb edema, normal PMI GI: Abdomen soft, mildly globally tender, Morton sign negative, bowel sounds in all 4 quadrants, no rebound tenderness, no masses, no hepatomegaly Skin: Skin warm dry and intact, no lesions appreciable Principal Diagnosis Gastroenteritis Discharge Exam Constitutional WD/WN, vitals as above + obese and cooperative Eyes + anicteric sclerae ENMT external ear and nose normal, oropharynx normal Neck normal visual inspection and trachea midline Respiratory normal respiratory effort, lungs clear to auscultation Cardiovascular RRR, no murmur, no edema Heart Sounds: normal S1 and normal S2 Gastrointestinal (Abdomen) Inspection/Auscultation: + abdomen distended and normal bowel sounds Percussion/Palpation: abdomen soft; abdomen nontender, no guarding and no hepatosplenomegaly Skin no rashes, warm and dry Psychiatric A+Ox3, euthymic affect Discharge Data Allergies Allergy/AdvReac Type Severity Reaction Status Date / Time No Known Allergies Allergy Verified 08/13/19 15:24 Consultations 08/19/19 21:50 ED Decision to Admit Stat Ordered Studies 08/19/19 19:02 CT abd pelvis wo con Stat Hospital Course (1) Diffuse abdominal pain: Terrell Billy is 63-year-old male with known bilateral kidney stones admitted 08/18 for evaluation of periumbilical abdominal pain and vomiting. Abdominal pain Patient describes sudden onset central abdominal pain that began shortly after eating 4 hot dogs and half of a banana-split. History reveals that refrigerator containing hot dogs may not have been at appropriate cooling temperature. Mr. Billy describes the pain as being distinctly different from that of his known kidney stones. He was afebrile throughout hospital stay, WBC normal, lipase normal, LFTs normal. CT scan of abdomen showed evidence of enteritis and a stable appearance of known bilateral, nonobstructing renal calculi. Due to change in nature of pain, source thought to be secondary to enteritis rather than nephrolithiasis. As for the etiology, viral vs. food poisoning. He was treated with supportive care (IV fluids, pain medications and anti-nausea meds). Although diarrhea was not a sequelae of his illness, a stool culture, WBC count, ova and parasites were ordered after a description of a voluminous diarrheal episode with worms several months ago. Mr. Billy reports self treating with a 3 day course of ivermectin. Studies ordered to assess for resolution in the setting of acute GI illness. Outpatient items to do: none Renal stones - known bilateral renal stones, scheduled for lithotripsy as outpatient 08/21 - UA showing >30 red blood cells per high-power field - placed on cefdinir for infection prophylaxis at most recent outpatient urology visit - continue Flomax Outpatient items to do: dietary counseling on kidney stone prevention COPD - Former smoker, quit in 2013 - no baseline O2 requirement - patient reports taking his inhalers "when I remember" - encouraged routine use of albuterol/ipratropium inhaler - patient oxygen saturation dropped to 88% while sleeping Outpatient items to do: admitting counselor patient on proper maintenance inhaler use. Consider outpatient sleep study to assess for obstructive sleep apnea Hypertension - BP was elevated throughout hospital stay, sys max 158, kika max 111 - likely secondary to pain - continue home amlodipine Outpatient items to do: repeat BP, adjust medications as appropriate (2) Kidney stones: (3) Hematuria: (4) Enteritis: (5) Failure of outpatient treatment: (6) Abdominal pain: Discharge Plan Discharge Items Patient Disposition: Home - Self-Care Reason For Visit: ABDOMINAL PAIN/ENTERITIS Discharge Diagnosis: Gastroenteritis Activity: Resume your previous activity Non-emergency contact: Primary Care Provider Call non-emergency contact if: your symptoms worsen Follow-up/Referrals: Poonam Haddad PA-C [Primary Care Provider] - Diet: Heart Healthy and Low Sodium (2gm) Addtl Attending Provider Instructions: You were hospitalized at [facility] for abdominal pain and vomiting. A cat scan of your abdomen was ordered which showed bilateral kidney stones and evidence of inflammation in your bowel, consistent with a gastroenteritis. No evidence of a bowel obstruction was found. Your white blood cell count, liver function, kidney function, and lipase levels were all normal. There was no evidence of a pancreatitis. We are aware you had an umbilical hernia repair several months ago - there were no signs of re-herniation or strangulation of this prior hernia. As for the cause of your gastroenteritis, a food bourne illness, or food poisoning is possible. You reported eating hot dogs from a refrigeration that may not be set to an adequate cool setting. Another possible cause is a viral gastroenteritis. Both are self-resolving illnesses. You were treated with IV fluids, pain medication and anti-nausea medication. You are scheduled to have lithotripsy for your kidney stones as an outpatient on 08/22/19. We encourage you to have this procedure as planned. Please follow up with your family doctor within one week of discharge. Pending Studies at Discharge: Yes (stool culture) Stand-Alone Forms: My [facility], Smoking Cessation Medications and DC Order Prescriptions: Continued tamsulosin 0.4 mg capsule 0.4 mg PO HS Qty: 30 RF: 2 amlodipine 5 mg tablet 5 mg PO QAM RF: 0 aspirin 81 mg Tablet,Delayed Release (Dr/Ec) 81 mg PO .ON HOLD RF: 0 ropinirole 0.5 mg tablet 0.5 mg PO HS RF: 0 naproxen sodium [Aleve] 220 mg Tablet 220 mg PO Q12H PRN (Reason: Pain) RF: 0 ibuprofen 200 mg Tablet 200 mg PO Q6H PRN (Reason: Pain) RF: 0 albuterol sulfate [Ventolin HFA] 90 mcg/actuation HFA aerosol inhaler 2 puff INHALATION Q6H PRN (Reason: Wheezing) RF: 0 omeprazole 20 mg Tablet,Delayed Release (Dr/Ec) 20 mg PO QAM RF: 0 cholecalciferol (vitamin D3) [Vitamin D3] 50 mcg (2,000 unit) Capsule 2,000 unit PO QAM RF: 0 Breo Ellipta 200-25 mcg/dose blister with device 1 ea INHALATION QAM RF: 0 cefdinir 300 mg capsule 300 mg PO BID Qty: 20 RF: 0 oxycodone 5 mg capsule 5 mg PO Q6H PRN (Reason: pain) Qty: 15 RF: 0 Admission Data Admit Date/Time: 08/19/19 22:58 Attending Provider: Joleen Alarcon Admit Provider: Vamsi Kowalski Primary Care Provider: Poonam Haddad Other Providers: Alyson Schroeder Resident Activity Tracking Resident Involvement: Resident Care Provided Care Provided: Adult Hospital Medicine
[2019-08-20] MEDS ORDERED: AMLODIPINE BESYLATE 5 MG TAB PO ONE (15:30)
--- NOTE | 2019-08-20 16:08 | Electrocardiogram Report ---
Test Reason : Blood Pressure : / mmHG Vent. Rate : 080 BPM Atrial Rate : 080 BPM P-R Int : 172 ms QRS Dur : 096 ms QT Int : 382 ms P-R-T Axes : 040 -17 049 degrees QTc Int : 440 ms Normal sinus rhythm Early transition Otherwise normal ECG When compared with ECG of 13-AUG-2019 12:46, No significant change was found Confirmed by Chao Amaya ([id number]) on 08/20/2019 4:08:37 PM Referred By: REFERRED SELF Confirmed By:Chao Amaya
--- NOTE | 2019-08-20 16:18 | Hospitalist Progress Note ---
Date of Service August 20, 2019 Assessment & Plan (1) Diffuse abdominal pain: Terrell Billy is 63-year-old male with known bilateral kidney stones admitted 08/18 for evaluation of periumbilical abdominal pain and vomiting. Abdominal pain - Patient describes sudden-onset central abdominal pain that began shortly after eating 4 hot dogs and half of a banana-split. History reveals that refrigerator containing hot dogs may not have been at appropriate cooling temperature. - afebrile throughout hospital stay, WBC normal, lipase normal, LFTs normal. - CT scan of abdomen showed evidence of enteritis and a stable appearance of known bilateral, nonobstructing renal calculi. - patient describes pain as being distinct from kidney stones,; thought to be viral gastroenteritis vs. food poisoning. - continue supportive care: IV fluids, IV morphine and tordol prn for pain, zofran prn for nausea - pain increased throughout day; repeat A/P CT scan ordered with IV and oral consult - stool culture, WBC count, ova and parasites were ordered after a description of a voluminous diarrheal episode with worms several months ago. Mr. Billy reports self treating with a 3 day course of ivermectin. Studies ordered to assess for resolution in the setting of acute GI illness. Renal stones - known bilateral renal stones, scheduled for lithotripsy as outpatient 08/21 - UA showing >30 red blood cells per high-power field - placed on cefdinir for infection prophylaxis at most recent outpatient urology visit - continue Flomax COPD - Former smoker, quit in 2012 - no baseline O2 requirement - patient reports taking his inhalers "when I remember" - encouraged routine use of albuterol/ipratropium inhaler - patient oxygen saturation dropped to 88% while sleeping Hypertension - BP at 154/111 - likely secondary to pain - continue home amlodipine Code Status: FULL DVT ppx: Lovenox 40mg SQ, daily Diet: Heart Healthy Dispo: floor (2) Kidney stones: (3) Hematuria: (4) Enteritis: (5) Failure of outpatient treatment: (6) Abdominal pain: Admission and Anticipated Discharge Date Admission Date: August 19, 2019 Supervising Physician Co-Signing Physician Notes Resident Physician Supervision Note: I independently interviewed and examined the patient and verified the brennan history and physical, reviewed labs and image studies, discussed the case with the resident Dr. Tadeo and agree with the findings and care plan. Subjective Patient reports pain is less than on admission. Had 1 episode of non-bloody vomiting today. Has appetite. Ambulating well. Has not had diarrhea - last BM yesterday around 2:30. Review of Systems Gastrointestinal: + abdominal pain and + nausea Physical Exam Constitutional: WD/WN, vitals as above + obese and cooperative Eyes: + anicteric sclerae ENMT: external ear and nose normal, oropharynx normal Neck: normal visual inspection and trachea midline Respiratory: normal respiratory effort, lungs clear to auscultation Cardiovascular: RRR, no murmur, no edema Heart Sounds: normal S1 and normal S2 Gastrointestinal (Abdomen): Inspection/Auscultation: + abdomen distended and normal bowel sounds Percussion/Palpation: abdomen soft; abdomen nontender, no guarding and no hepatosplenomegaly Skin: no rashes, warm and dry Psychiatric: A+Ox3, euthymic affect Results & Data ([facility]) Vital Signs (Past 12 Hours) Vital Signs Temp Pulse Resp BP Pulse Ox 08/20/19 15:09 36.7 C 78 16 154/111 H 94 08/20/19 07:26 36.6 C 78 20 169/110 H 98 Resident Activity Tracking Resident Involvement: Resident Care Provided Care Provided: Adult Hospital Medicine (1) Hematuria Hematuria type: unspecified type Qualified Code(s): R31.9 - Hematuria, unspecified (2) Abdominal pain Abdominal location: right upper quadrant Qualified Code(s): R10.11 - Right upper quadrant pain
[2019-08-20] MEDS ORDERED: METOPROLOL TARTRATE 1 MG/ML VIAL IV STA (17:50)
[2019-08-20] MEDS ORDERED: METOPROLOL TARTRATE 1 MG/ML VIAL IV PRN (17:51)
[2019-08-20] MEDS ORDERED: SENNA 8.8 MG/5 ML UDP PO STA (18:11)
[2019-08-20] MEDS: TAMSULOSIN HCL 0.4 MG CAP PO SCH (20:40)
[2019-08-20] MEDS: ROPINIROLE HCL 0.25 MG TABLET PO SCH (20:40)
[2019-08-20] MEDS ORDERED: IOVERSOL 100ml IV PRN (21:37)
--- NOTE | 2019-08-20 21:52 | CT Scan Report ---
CT abd pelvis oral and IV con CT DOSE: 1923.90 mGy.cm HISTORY: Pain increasing abdominal pain TECHNIQUE: Multiaxial CT images of the abdomen and pelvis were performed following the use of intrave nous and oral contrast. A dose lowering technique was utilized adhering to the principles of ALARA. COMPARISON STUDY: 08/19/2019 FINDINGS: The lung bases remain clear. Stable 8 mm left basilar parenchymal nodule.. Mild fatty repla cement of the liver. Spleen is unremarkable as is the pancreas. The left para-aortic lymphocele is un changed. This is considered a chronic finding. Bilateral nonobstructing urinary tract calcifications. The dominant calcification within the right re nal pelvis is unchanged. There is again no evidence for hydronephrosis. Findings of a nonspecific enteritis are unchanged. May be a slight increase in small bowel distention .. Within the right flank there is a trace amount of fluid within the right paracolic gutter. There is i nterval development of a trace amount of right flank infiltrative change. There is also a slight incr ease in infiltrative change as well as free fluid within the left paracolic gutter as well as adjacen t to the descending colon. The appendix remains normal. No evidence for abscess collection or obstruction. There is slight increase in small bowel distention appears to have a leading-edge in the right lower quadrant. There is no evidence for well-defined mass or collection at this site. There are chronic findings of sigmoid diverticulosis. No evidence for superimposed acute diverticular change. IMPRESSION: 1. Mild increase in small bowel distention as compared to the prior study. 2. This appears to have a leading-edge within the right lower quadrant although there is no evidence for an associated mass or collection. 3. Mild increase in fluid within the paracolic gutter regions with evidence for chronic sigmoid diver ticulosis considered unaltered. 4. Appearance is suggestive of progressive enteritis, with secondary findings of developing distal pa rtial small bowel obstructive change.. 5. All remaining components of the study are unchanged compared to the prior exam. Stable left basila r 8 mm nodule. IMPRESSION: No significant abnormality identified within the abdomen or pelvis. ACT 112: Negative or not required by law. The above report was generated using voice recognition software. It may contain grammatical, syntax or spelling errors. Electronically signed by: Kartik Atwood M.D. 08/20/2019 9:50 PM
[2019-08-21] MEDS: SODIUM CHLORIDE 0.9% 1000ML 1,000 ML IV SCH ×3 (06:28→22:39)
[2019-08-21] MEDS: ENOXAPARIN INJ 40 MG/0.4 ML SYR SQ SCH (08:27)
[2019-08-21] MEDS: FLUTICASONE/VILANTEROL 200/25MCG 14 PUFFS/INHALER INH SCH (08:28)
[2019-08-21] MEDS: AMLODIPINE BESYLATE 5 MG TAB PO SCH (08:31)
[2019-08-21] MEDS: CEFDINIR 300 MG CAP PO SCH ×2 (08:31→21:14)
[2019-08-21] MEDS: CHOLECALCIFEROL 1,000 UNITS 25 MCG TAB PO SCH (08:32)
[2019-08-21] MEDS: PANTOprazole 40 MG TAB PO SCH (08:32)
--- NOTE | 2019-08-21 14:57 | Discharge Summary ---
Date of Service August 21, 2019 Admission HPI Per Admitting Provider Patient has been dealing with kidney stone issues for some time, lithotripsy planned for Sunday. 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 Patient felt the pain was much more severe than his kidney stone pain. He laid in bed and hoped it would pass but it did not, he didn't have anything that could kill the pain so he decided to come in to hospital. He did take one oxycodone in the morning. Here in emergency department he was given IV morphine and that completely took care of the pain. 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 Patient and say they were not surprised by this as he eats a large amount of sushi. treated him with a course of ivermectin she has for her cows. He described pain as being central and epigastric cramping type pain, very severe, screaming out. He has had no nausea, vomiting, diarrhea, chest pain, shortness of breath, skin lesions, headache, body aches or any other concerning symptoms. He is still making normal urine. He is currently pain free but heavily medicated and falling asleep intermittently which partially affected my review of systems breadth. Admission Exam Per Admitting Provider Constitutional: 63-year-old gentleman lying in bed, obviously somnolent and falling asleep in and out of our conversation. No apparent distress at this time Eyes: Extraocular muscle movements intact bilaterally ENMT: No abnormalities detected Respiratory: Chest expansion equal bilaterally, no increased work of breathing, breath sounds vesicular globally Cardiovascular: Regular rate regular rhythm, normal S1-S2 on auscultation, no murmurs rubs skips or gallops, no lower limb edema, normal PMI GI: Abdomen soft, mildly globally tender, Morton sign negative, bowel sounds in all 4 quadrants, no rebound tenderness, no masses, no hepatomegaly Skin: Skin warm dry and intact, no lesions appreciable Principal Diagnosis Small Bowel Obstruction Discharge Exam Constitutional: WD/WN, vitals as above + obese and cooperative Eyes: + anicteric sclerae ENMT: external ear and nose normal, oropharynx normal Neck: normal visual inspection and trachea midline Respiratory: normal respiratory effort, lungs clear to auscultation Cardiovascular: RRR, no murmur, no edema Heart Sounds: normal S1 and normal S2 Gastrointestinal (Abdomen): Inspection/Auscultation: + abdomen distended and normal bowel sounds. Percussion/Palpation: abdomen soft; mildly tender to palpation diffusely, no guarding and no hepatosplenomegaly Skin: no rashes, warm and dry Psychiatric: A+Ox3, euthymic affect Discharge Data Allergies Allergy/AdvReac Type Severity Reaction Status Date / Time No Known Allergies Allergy Verified 08/13/19 15:24 Consultations 08/19/19 21:50 ED Decision to Admit Stat Ordered Studies 08/19/19 19:02 CT abd pelvis wo con Stat 08/20/19 18:19 CT abd pelvis oral and IV con Routine Hospital Course (1) Diffuse abdominal pain: Terrell Billy is 63-year-old male with known bilateral kidney stones admitted 08/18 for evaluation of periumbilical abdominal pain and vomiting. Abdominal pain Patient describes sudden onset central abdominal pain that began shortly after eating 4 hot dogs and half of a banana-split. History reveals that refrigerator containing hot dogs may not have been at appropriate cooling temperature. Mr. Billy describes the pain as being distinctly different from that of his known kidney stones. He was afebrile throughout hospital stay, WBC normal, lipase normal, LFTs normal. CT scan of abdomen on admission showed evidence of enteritis and a stable appearance of known bilateral, nonobstructing renal calculi. Repeat CTA with oral and IV contrast showing progression of enteritis with secondary findings of developing distal partial small bowel obstructive. He was treated with supportive care (IV fluids, pain medications and anti-nausea meds). His abdominal pain was resolved by the time of discharge. As for the et iology, viral vs. food poisoning. He was encouraged to avoid consuming food out of suspected refrigerator until maintenance could be arranged. Although diarrhea was not a sequelae of his illness, a stool culture, WBC count, ova and parasites were ordered after a description of a voluminous diarrheal episode with worms several months ago. Mr. Billy reports self treating with a 3 day course of ivermectin. Studies ordered to assess for resolution in the setting of acute GI illness. Outpatient items to do: none Renal stones - known bilateral renal stones, scheduled for lithotripsy as outpatient 08/21 - UA showing >30 red blood cells per high-power field - placed on cefdinir for infection prophylaxis at most recent outpatient urology visit - continue Flomax Outpatient items to do: dietary counseling on kidney stone prevention Incidental Findings - Abdominopelvic CT scan on admission showed an 8mm solid nodule in the lower lobe of the left lung. Mr. Billy insists this nodule has been followed by a provider in the [facility] and it has always been stable. According to Fleishner criteria, high risk patients, such as Mr. Billy should have a follow- up CT at 6-12 months and then at 18-24 months if no change. - CT also revealed a cystic lesion along the left aspect of the distal aorta and left common iliac artery, measuring 8.6 x 6.8 cm and does not appear to exert significant mass effect on surrounding structures. 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 Nonemergent surgical consultation is recommended. In addition, a follow-up nonemergent testicular ultrasound should be performed to exclude the less likely possibility of a testicular neoplasm. Outpatient items to do: Place non-emergent surgical consult. Order non-emergent testicular ultrasound. Follow up lung chest CT as above for lung nodule. 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 Consider refitting patient for CPAP Hypertension - BP was elevated throughout hospital stay, sys max 158, kika max 111 - likely secondary to pain - continue home amlodipine Outpatient items to do: Recheck BP and assess need for medication titration Discharge Plan Discharge Items Patient Disposition: Home - Self-Care Reason For Visit: ABDOMINAL PAIN/ENTERITIS Discharge Diagnosis: Gastroenteritis Activity: Resume your previous activity Non-emergency contact: Primary Care Provider Call non-emergency contact if: your symptoms worsen Follow-up/Referrals: Poonam Haddad PA-C [Primary Care Provider] - Diet: Heart Healthy and Low Sodium (2gm) Addtl Attending Provider Instructions: You were hospitalized at [facility] for abdominal pain and vom iting. A cat scan of your abdomen was ordered which showed bilateral kidney stones and evidence of inflammation in your bowel, consistent with a gastroenteritis. No evidence of a bowel obstruction was found. Your white blood cell count, liver function, kidney function, and lipase levels were all normal. There was no evidence of a pancreatitis. We are aware you had an umbilical hernia repair several months ago - there were no signs of re-herniation or strangulation of this prior hernia. As for the cause of your gastroenteritis, a food bourne illness, or food poisoning is possible. You reported eating hot dogs from a refrigeration that may not be set to an adequate cool setting. Another possible cause is a viral gastroenteritis. Both are self-resolving illnesses. You were treated with IV f luids, pain medication and anti-nausea medication. You are scheduled to have lithotripsy for your kidney stones as an outpatient on 08/22/19. We encourage you to have this procedure as planned. Please follow up with your family doctor within one week of discharge. Pending Studies at Discharge: Yes (stool culture) Stand-Alone Forms: [facility], Smoking Cessation Medications and DC Order Prescriptions: Continued tamsulosin 0.4 mg capsule 0.4 mg PO HS Qty: 30 RF: 2 amlodipine 5 mg tablet 5 mg PO QAM RF: 0 aspirin 81 mg Tablet,Delayed Release (Dr/Ec) 81 mg PO .ON HOLD RF: 0 ropinirole 0.5 mg tablet 0.5 mg PO HS RF: 0 naproxen sodium [Aleve] 220 mg Tablet 220 mg PO Q12H PRN (Reason: Pain) RF: 0 ibuprofen 200 mg Tablet 200 mg PO Q6H PRN (Reason: Pain) RF: 0 albuterol sulfate [Ventolin HFA] 90 mcg/actuation HFA aerosol inhaler 2 puff INHALATION Q6H PRN (Reason: Wheezing) RF: 0 omeprazole 20 mg Tablet,Delayed Release (Dr/Ec) 20 mg PO QAM RF: 0 cholecalciferol (vitamin D3) [Vitamin D3] 50 mcg (2,000 unit) Capsule 2,000 unit PO QAM RF: 0 Breo Ellipta 200-25 mcg/dose blister with device 1 ea INHALATION QAM RF: 0 cefdinir 300 mg capsule 300 mg PO BID Qty: 20 RF: 0 oxycodone 5 mg capsule 5 mg PO Q6H PRN (Reason: pain) Qty: 15 RF: 0 Admission Data Admit Date/Time: 08/19/19 22:58 Attending Provider: Joleen Alarcon Admit Provider: Vamsi Kowalski Primary Care Provider: Poonam Haddad Other Providers: Alyson Schroeder Resident Activity Tracking Resident Involvement: Resident Care Provided Care Provided: Adult Hospital Medicine
--- NOTE | 2019-08-21 18:25 | Hospitalist Progress Note ---
Date of Service August 21, 2019 Assessment & Plan (1) Diffuse abdominal pain: Terrell Billy is 63-year-old male with known bilateral kidney stones admitted 08/18 for evaluation of periumbilical abdominal pain and vomiting. Abdominal pain - Patient describes sudden-onset central abdominal pain that began shortly after eating 4 hot dogs and half of a banana-split. History reveals that refrigerator containing hot dogs may not have been at appropriate cooling temperature. - afebrile throughout hospital stay, WBC normal, lipase normal, LFTs normal. - CT scan of abdomen on admission showed evidence of enteritis and a stable appearance of known bilateral, nonobstructing renal calculi. - repeat CT evening of 08/19 with IV and oral contrast showed progression of enteritis with small bowel obstruction - stool culture, WBC count, ova and parasites were ordered after a description of a voluminous diarrheal episode with worms several months ago. Mr. Billy reports self treating with a 3 day course of ivermectin. Studies ordered to assess for resolution in the setting of acute GI illness. - bowel inflammation thought to be viral gastroenteritis vs. food poisoning - continue supportive care: IV fluids, IV morphine and Toradol prn for pain, zofran prn for nausea Small Bowel Obstruction - visualized on contrast CT scan - continue supportive care: IV fluids, IV morphine and Toradol prn for pain, zofran prn for nausea - clear liquid diet in AM Renal stones - known bilateral renal stones, scheduled for lithotripsy as outpatient 08/21 - UA showing >30 red blood cells per high-power field - placed on cefdinir for infection prophylaxis at most recent outpatient urology visit - continue Flomax COPD - Former smoker, quit in 2012 - no baseline O2 requirement - patient reports taking his inhalers "when I remember" - encouraged routine use of albuterol/ipratropium inhaler - patient oxygen saturation dropped to 88% while sleeping Hypertension - BP at 156/103 - likely secondary to pain - continue home amlodipine Code Status: FULL DVT ppx: Lovenox 40mg SQ, daily Diet: Heart Healthy Dispo: floor (2) Kidney stones: (3) Hematuria: (4) Enteritis: (5) Failure of outpatient treatment: (6) Abdominal pain: Admission and Anticipated Discharge Date Admission Date: August 19, 2019 Supervising Physician Co-Signing Physician Notes Resident Physician Supervision Note: I independently interviewed and examined the patient and verified the brennan history and physical, reviewed labs and image studies, discussed the case with the resident Dr. Tadeo and agree with the findings and care plan. Subjective Pain requirement reduced overnight. Patient tolerated clear liquid diet for lunch; soft diet for dinner caused recurrence of abdominal pain. No vomiting. Review of Systems Gastrointestinal: + abdominal pain and + nausea Physical Exam Constitutional: WD/WN, vitals as above + obese and cooperative Eyes: + anicteric sclerae ENMT: external ear and nose normal, oropharynx normal Neck: normal visual inspection and trachea midline Respiratory: normal respiratory effort, lungs clear to auscultation Cardiovascular: RRR, no murmur, no edema Heart Sounds: normal S1 and normal S2 Gastrointestinal (Abdomen): Inspection/Auscultation: + abdomen distended and normal bowel sounds Percussion/Palpation: abdomen soft; abdomen nontender, no guarding and no hepatosplenomegaly Skin: no rashes, warm and dry Psychiatric: A+Ox3, euthymic affect Results & Data ([facility]) Vital Signs (Past 12 Hours) Vital Signs Temp Pulse Resp BP Pulse Ox 08/21/19 15:14 36.8 C 77 18 156/103 H 94 08/21/19 07:24 36.5 C 76 16 146/96 H 98 Resident Activity Tracking Resident Involvement: Resident Care Provided Care Provided: Adult Hospital Medicine (1) Hematuria Hematuria type: unspecified type Qualified Code(s): R31.9 - Hematuria, unspecified (2) Abdominal pain Abdominal location: right upper quadrant Qualified Code(s): R10.11 - Right upper quadrant pain
[2019-08-21] MEDS ORDERED: SOD PHOSPHATE/SOD BIPHOSPHATE ENEMA 132 ML BTL PR STA (18:41)
--- NOTE | 2019-08-21 20:58 | XRay Report ---
XR KUB/Abdomen 1 view CLINICAL HISTORY: Lithotrypsy 08/21 nephrocalcinosis COMPARISON STUDY: 08/13/2019 FINDINGS: 7 mm calcification central right kidney. This is unchanged. Bowel pattern is nonobstructive . Mild contrast has residual within the rectosigmoid. Several smaller calcifications overlying the kidneys appear unaltered. IMPRESSION: Unchanging nephrocalcinosis. ACT 112: Negative or not required by law. The above report was generated using voice recognition software. It may contain grammatical, syntax or spelling errors. Electronically signed by: Kartik Atwood M.D. 08/21/2019 8:56 PM
[2019-08-21] MEDS: TAMSULOSIN HCL 0.4 MG CAP PO SCH (21:14)
[2019-08-21] MEDS: ROPINIROLE HCL 0.25 MG TABLET PO SCH (21:14)
[2019-08-21] MEDS ORDERED: MoRPHine SULFATE 4 MG/ML 1 ML CARP\\VIAL IV ONE (22:18)
[2019-08-21] MEDS: KETOROLAC TROMETHAMINE 15 MG/ML VIAL IV PRN (23:26)
[2019-08-22] MEDS: SODIUM CHLORIDE 0.9% 1000ML 1,000 ML IV SCH (05:30)
[2019-08-22] MEDS: KETOROLAC TROMETHAMINE 15 MG/ML VIAL IV PRN ×2 (05:31→23:24)
[2019-08-22] MEDS: FLUTICASONE/VILANTEROL 200/25MCG 14 PUFFS/INHALER INH SCH (08:44)
[2019-08-22] MEDS: AMLODIPINE BESYLATE 5 MG TAB PO SCH (08:45)
[2019-08-22] MEDS: CEFDINIR 300 MG CAP PO SCH ×2 (08:45→21:34)
[2019-08-22] MEDS: PANTOprazole 40 MG TAB PO SCH (08:46)
[2019-08-22] MEDS: CHOLECALCIFEROL 1,000 UNITS 25 MCG TAB PO SCH (08:46)
[2019-08-22] MEDS: ENOXAPARIN INJ 40 MG/0.4 ML SYR SQ SCH (08:47)
--- NOTE | 2019-08-22 11:31 | Surgery Consultation ---
Date of Consultation August 22, 2019 Assessment & Plan (1) Enteritis: 63 year-old male who presented to ED on 08/19/2019 with abdominal pain after eating several hot dogs and banana split. No recent changes in bowel habits. History of baseline constipation. CT scan with contrast 08/20/2019 s howing enteritis and possible small bowel obstructive change. KUB from 08/21/2019 showing no obstructive change and contrast within the colon. No surgical indication at this time. Patient has never had a colonoscopy. Would recommend GI consultation for further evaluation. May need endoscopy and would recommend good bowel regimen for his baseline constipation. (2) Diffuse abdominal pain: upon presentation resolved now pain after enema last night, not with advancement of diet Dr. Kramer has seen patient and was present during my examination. Agrees with above. History of Present Illness Reason for Consultation: SBO, unable to advance diet Requesting Physician: Melinda Tadeo MD Attending Physician: Joleen Alarcon MD History of Present Illness Terrell is a 63 year-old male who presented to emergency department on 08/19/2019 with complaint of severe abdominal pain after eating hot dogs and ice cream. Remote history of parasites in stool self treated at home a few months ago with ivermectin. Had severe abdominal pain that would not go away after eating above foods and presented to ED. Denies of any fever, chills, nausea, vomiting, diarrhea, blood in stools. CT scan of abdomen and pelvis without contrast originally showed evidence of enteritis likely infectious vs inflammatory. Labs showed no leukocytosis, wnl lactic acid, mild hypokalemia at 3.4. Repeat CT scan with IV and oral contrast on 08/20/2019 showed increased small bowel distention with possible small bowel obstructive change in RLQ however no mass appreciated. KUB yesterday 08/21/2019 showed nonobstructive bowel appearance with contrast in the colon. Our services consulted for SBO with inability to advance diet. Patient is now NPO. Had clear liquids yesterday and then regular diet last night. States he then had enema last night which then caused abdominal pain similar to the pain that he presented with. The pain did not occur after ea ting. States he feels as though if he were to have a large bowel movement he would feel a lot better. He has never had a colonoscopy before. He denies of any family history of inflammatory bowel disease or colon cancer. Sister has diverticulosis. He states he usually has constipation and takes Magnesium to help with that but no stool softeners or gentle laxatives. Passing only small amount of flatus and no real bowel movement since admission. Allergies Allergy/AdvReac Type Severity Reaction Status Date / Time No Known Allergies Allergy Verified 08/13/19 15:24 Home Medications Home Medications Medication Instructions Recorded Confirmed Type albuterol sulfate [Ventolin HFA] 2 puff INHALATION Q6H PRN 08/10/19 08/19/19 History amlodipine 5 mg PO QAM 08/10/19 08/19/19 History aspirin 81 mg PO .ON HOLD 08/10/19 08/19/19 History cefdinir 300 mg PO BID #20 cap 08/10/19 08/19/19 Rx cholecalciferol (vitamin D3) 2,000 unit PO QAM 08/10/19 08/19/19 History [Vitamin D3] fluticasone furoate-vilanterol 1 ea INHALATION QAM 08/10/19 08/19/19 History [Breo Ellipta] ibuprofen 200 mg PO Q6H PRN 08/10/19 08/19/19 History naproxen sodium [Aleve] 220 mg PO Q12H PRN 08/10/19 08/19/19 History omeprazole 20 mg PO QAM 08/10/19 08/19/19 History oxycodone 5 mg PO Q6H PRN #15 cap 08/10/19 08/19/19 Rx ropinirole 0.5 mg PO HS 08/10/19 08/19/19 History tamsulosin 0.4 mg capsule 0.4 mg PO HS #30 cap 08/13/19 08/19/19 Rx Patient History Medical History Adverse anesthesia outcome SEVERE NECK PAIN POST BACK SURGERY Chronic back pain COPD (chronic obstructive pulmonary disease) Hypertension Kidney stones CURRENT Restless leg syndrome Spinal stenosis Surgical History (Updated 08/22/19 @ 12:03 by Kavitha Servin PA-C) H/O abdominoplasty H/O hernia repair History of spinal surgery Hx of repair of left rotator cuff Hx of repair of right rotator cuff Family History Father Heart disease [place] Hypertension Mother Cancer Brain Sister Cancer Lung Social History Preferred Language: [place] Communication Ability: Effective 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 Beliefs That Will Affect Care: None marital status: Current Living Situation: Spouse current occupational status: retired Feels Safe at Home: Yes Smoking Status: Former smoker Tobacco Type: cigarettes ; Do You Dip or Chew Tobacco: No ; Hx Alcohol Use: Yes Alcohol type: beer and hard liquor Hx Substance Use: Yes substance use type: former substance user and crack/cocaine Review of Systems Review of Systems: All systems reviewed & are unremarkable except as noted in HPI & below Physical Exam Constitutional: WD/WN, vitals as above + morbidly obese Respiratory: normal respiratory effort, lungs clear to auscultation normal respiratory effort; no respiratory distress Cardiovascular: RRR, no murmur, no edema Gastrointestinal (Abdomen): Inspection/Auscultation: abdomen normal to inspection; abdomen not distended Percussion/Palpation: + abdomen tender (RLQ on deep palpation) and abdomen soft; no guarding and abdomen not rigid prior umbilical hernia repair scar present Skin: no rashes, warm and dry Psychiatric: Orientation: alert and oriented x 3 Results & Data Vital Signs (Past 12 Hours) Vital Signs Temp Pulse Resp BP Pulse Ox 08/22/19 07:30 36.6 C 63 18 146/[address] abd pelvis oral and IV con CT DOSE: 1923.90 mGy.cm HISTORY: Pain increasing abdominal pain TECHNIQUE: Multiaxial CT images of the abdomen and pelvis were performed following the use of intravenous and oral contrast. A dose lowering technique was utilized adhering to the principles of ALARA. COMPARISON STUDY: 08/19/2019 FINDINGS: The lung bases remain clear. Stable 8 mm left basilar parenchymal nodule.. Mild fatty replacement of the liver. Spleen is unremarkable as is the pancreas. The left para-aortic lymphocele is unchanged. This is considered a chronic finding. Bilateral nonobstructing urinary tract calcifications. The dominant calcification within the right renal pelvis is unchanged. There is again no evidence for hydronephrosis. Findings of a nonspecific enteritis are unchanged. May be a slight increase in small bowel distention.. Within the right flank there is a trace amount of fluid within the right paracolic gutter. There is interval development of a trace amount of right flank infiltrative change. There is also a slight increase in infiltrative change as well as free fluid within the left paracolic gutter as well as adjacent to the descending colon. The appendix remains normal. No evidence for abscess collection or obstruction. There is slight increase in small bowel distention appears to have a leading- edge in the right lower quadrant. There is no evidence for well-defined mass or collection at this site. There are chronic findings of sigmoid diverticulosis. No evidence for superimposed acute diverticular change. IMPRESSION: 1. Mild increase in small bowel distention as compared to the prior study. 2. This appears to have a leading-edge within the right lower quadrant although there is no evidence for an associated mass or collection. 3. Mild increase in fluid within the paracolic gutter regions with evidence for chronic sigmoid diverticulosis considered unaltered. 4. Appearance is suggestive of progressive enteritis, with secondary findings of developing distal partial small bowel obstructive change.. 5. All remaining components of the study are unchanged compared to the prior exam. Stable left basilar 8 mm nodule. XR KUB/Abdomen 1 view 08/21/2019 CLINICAL HISTORY: Lithotrypsy 08/21 nephrocalcinosis COMPARISON STUDY: 08/13/2019 FINDINGS: 7 mm calcification central right kidney. This is unchanged. Bowel pattern is nonobstructive. Mild contrast has residual within the rectosigmoid. Several smaller calcifications overlying the kidneys appear unaltered. IMPRESSION: Unchanging nephrocalcinosis.
[2019-08-22] MEDS: POLYETHYLENE (MIRALAX) 17 GM PACK PO SCH (13:38)
[2019-08-22] MEDS: DOCUSATE SODIUM 100 MG CAP PO SCH ×2 (13:38→21:34)
--- NOTE | 2019-08-22 16:24 | Hospitalist Progress Note ---
Date of Service August 22, 2019 Assessment & Plan (1) Diffuse abdominal pain: Terrell Billy is 63-year-old male with known bilateral kidney stones admitted 08/18 for evaluation of periumbilical abdominal pain and vomiting. Abdominal pain - Patient describes sudden-onset central abdominal pain that began shortly after eating 4 hot dogs and half of a banana-split. History reveals that refrigerator containing hot dogs may not have been at appropriate cooling temperature. - afebrile throughout hospital stay, WBC normal, lipase normal, LFTs normal. - CT scan of abdomen on admission showed evidence of enteritis and a stable appearance of known bilateral, nonobstructing renal calculi. - repeat CT evening of 08/19 with IV and oral contrast showed progression of enteritis with small bowel obstruction - stool culture, WBC count, ova and parasites were ordered after a description of a voluminous diarrheal episode with worms several months ago. Mr. Billy reports self treating with a 3 day course of ivermectin. Studies ordered to assess for resolution in the setting of acute GI illness. - bowel inflammation thought to be viral gastroenteritis vs. food poisoning - continue supportive care: IV fluids, IV morphine and Toradol prn for pain, zofran prn for nausea Small Bowel Obstruction - visualized on contrast CT scan - despite appetite, patient has failed two re-feed trials; npo for now - continue supportive care: IV fluids, IV morphine and Toradol prn for pain, zofran prn for nausea - surgery consulted, recommended GI consult, bowel regimen and signed off on case - GI consulted Renal stones - known bilateral renal stones, scheduled for lithotripsy as outpatient 08/21 - cancelled as Mr. Billy was inpatient. will reschedule - UA showing >30 red blood cells per high-power field - placed on cefdinir for infection prophylaxis at most recent outpatient urology visit - continue Flomax COPD - Former smoker, quit in 2012 - no baseline O2 requirement - patient reports taking his inhalers "when I remember" - encouraged routine use of albuterol/ipratropium inhaler Obstructive Sleep Apnea - patient has CPAP at home but finds it intolerable; had to cancel recent appointment to have it refitted - patient oxygen saturation dropped to 88% while sleeping - supplemental O2 as needed Hypertension - BP at 156/103 - likely secondary to pain - continue home amlodipine Code Status: FULL DVT ppx: Lovenox 40mg SQ, daily Diet: Heart Healthy Dispo: floor (2) Kidney stones: (3) Hematuria: (4) Enteritis: (5) Failure of outpatient treatment: (6) Abdominal pain: Admission and Anticipated Discharge Date Admission Date: August 21, 2019 Supervising Physician Co-Signing Physician Notes Resident Physician Supervision Note: I independently interviewed and examined the patient and verified the brennan history and physical, reviewed labs and image studies, discussed the case with the resident Dr. Tadeo and agree with the findings and care plan. Subjective Overnight patient developed significant abdominal pain, requiring use of IV morphine. He is feeling well at present, no pain or nausea. Has appetite Review of Systems Gastrointestinal: + bloating; no abdominal pain and no nausea Physical Exam Constitutional: WD/WN, vitals as above + obese and cooperative Eyes: + anicteric sclerae ENMT: external ear and nose normal, oropharynx normal Neck: normal visual inspection and trachea midline Respiratory: normal respiratory effort, lungs clear to auscultation Cardiovascular: RRR, no murmur, no edema Heart Sounds: normal S1 and normal S2 Gastrointestinal (Abdomen): Inspection/Auscultation: + abdomen distended and normal bowel sounds Percussion/Palpation: abdomen soft; abdomen nontender, no guarding and no hepatosplenomegaly Skin: no rashes, warm and dry Psychiatric: A+Ox3, euthymic affect Results & Data ([facility]) Vital Signs (Past 12 Hours) Vital Signs Temp Pulse Resp BP Pulse Ox 08/22/19 15:17 36.8 C 75 18 176/119 H 95 08/22/19 07:30 36.6 C 63 18 146/98 H 94 Resident Activity Tracking Resident Involvement: Resident Care Provided Care Provided: Adult Hospital Medicine (1) Hematuria Hematuria type: unspecified type Qualified Code(s): R31.9 - Hematuria, unspecified (2) Abdominal pain Abdominal location: right upper quadrant Qualified Code(s): R10.11 - Right upper quadrant pain
--- NOTE | 2019-08-22 16:41 | Gastrointestinal Consultation ---
Date of Consultation August 22, 2019 Assessment & Plan (1) Diffuse abdominal pain: (2) Enteritis: (3) Abnormal CT of the abdomen: possible partial SBO that is resolving with a viral enteritis as well Recs: 1. serial KUBs (at least daily) and abdominal exams 2. NPO, IVFs and supportive care at this time, pain control prn 3. gentle bowel regimen with miralax 1-2 times per day for now 4. If continues to improve, can consider advancing diet to clear liquids starting tomorrow morning 5.No prior colonoscopy, will need one as an outpatient once this acute process has resolved. 6. stool studies pending thank you for allowing me to participate in the care of this patient. History of Present Illness Attending Physician: Joleen Alarcon MD 63 yo male here for evaluation. GI consulted for possible SBO and enteritis. KUB most recently was nonobstructive. He had a medium sized bowel movement this afternoon, notes abdominal distention and pains. No prior colonoscopy. History of abnormal food intake/possible food poisoning with hot dogs is noted. Notes previous umbilical hernia surgery, otherwise no abdominal surgeries. Has not tolerated po intake this admission, currently NPO. CT A/P showed: 1. Mild increase in small bowel distention as compared to the prior study. 2. This appears to have a leading-edge within the right lower quadrant although there is no evidence for an associated mass or collection. 3. Mild increase in fluid within the paracolic gutter regions with evidence for chronic sigmoid diverticulosis considered unaltered. 4. Appearance is suggestive of progressive enteritis, with secondary findings of developing distal partial small bowel obstructive change.. 5. All remaining components of the study are unchanged compared to the prior exam. Stable left basilar 8 mm nodule. Allergies Allergy/AdvReac Type Severity Reaction Status Date / Time No Known Allergies Allergy Verified 08/13/19 15:24 Home Medications Home Medications Medication Instructions Recorded Confirmed Type albuterol sulfate [Ventolin HFA] 2 puff INHALATION Q6H PRN 08/10/19 08/19/19 History amlodipine 5 mg PO QAM 08/10/19 08/19/19 History aspirin 81 mg PO .ON HOLD 08/10/19 08/19/19 History cefdinir 300 mg PO BID #20 cap 08/10/19 08/19/19 Rx cholecalciferol (vitamin D3) 2,000 unit PO QAM 08/10/19 08/19/19 History [Vitamin D3] fluticasone furoate-vilanterol 1 ea INHALATION QAM 08/10/19 08/19/19 History [Breo Ellipta] ibuprofen 200 mg PO Q6H PRN 08/10/19 08/19/19 History naproxen sodium [Aleve] 220 mg PO Q12H PRN 08/10/19 08/19/19 History omeprazole 20 mg PO QAM 08/10/19 08/19/19 History oxycodone 5 mg PO Q6H PRN #15 cap 08/10/19 08/19/19 Rx ropinirole 0.5 mg PO HS 08/10/19 08/19/19 History tamsulosin 0.4 mg capsule 0.4 mg PO HS #30 cap 08/13/19 08/19/19 Rx Patient History Medical History Adverse anesthesia outcome SEVERE NECK PAIN POST BACK SURGERY Chronic back pain COPD (chronic obstructive pulmonary disease) Hypertension Kidney stones CURRENT Restless leg syndrome Spinal stenosis Surgical History (Updated 08/22/19 @ 12:03 by Kavitha Servin PA-C) H/O abdominoplasty H/O hernia repair History of spinal surgery Hx of repair of left rotator cuff Hx of repair of right rotator cuff Family History Father Heart disease MD Hypertension Mother Cancer Brain Sister Cancer Lung Social History Preferred Language: [place] Communication Ability: Effective Extermination Inspector Required: No Beliefs That Will Affect Care: None marital status: Current Living Situation: Spouse current occupational status: retired Feels Safe at Home: Yes Smoking Status: Former smoker Tobacco Type: cigarettes ; Do You Dip or Chew Tobacco: No ; Hx Alcohol Use: Yes Alcohol type: beer and hard liquor Hx Substance Use: Yes substance use type: former substance user and crack/cocaine Review of Systems Review of Systems: [facility] Constitutional: no fever and no chills Eyes: as per Subjective / HPI Ear, Nose, Mouth, Throat: as per Subjective / HPI Respiratory: no cough, no dyspnea and no dyspnea on exertion Cardiovascular: no chest pain and no dyspnea Gastrointestinal: as per Subjective / HPI Musculoskeletal: no joint pain and no swelling Integumentary: no rash and no lesions Neurologic: no numbness and no paresthesia Psychiatric: no depression and no anxiety Endocrine: no fatigue Hematologic / Lymphatic: no easy bleeding and no easy bruising Physical Exam Constitutional: WD/WN, vitals as above Eyes: EOM intact bilaterally Neck: normal visual inspection Respiratory: normal respiratory effort, lungs clear to auscultation Cardiovascular: RRR, no murmur, no edema Gastrointestinal (Abdomen): normal bowel sounds, soft, nontender, no hepatosplenomegaly Inspection/Auscultation: abdomen normal to inspection; abdomen not distended Percussion/Palpation: abdomen soft; abdomen nontender and no hepatosplenomegaly Musculoskeletal: Extremities: no cyanosis Gait: normal gait no lower extremity edema Skin: no rashes, warm and dry Neurologic: moves all extremities Psychiatric: A+Ox3, euthymic affect Results & Data ([facility]) Vital Signs (Past 12 Hours) Vital Signs Temp Pulse Resp BP Pulse Ox 08/22/19 15:17 36.8 C 75 18 176/119 H 95 08/22/19 07:30 36.6 C 63 18 146/98 H 94 PG Care Time/CCT Total # of Minutes Spent Total Time Spent with Patient: Total time spent is greater than 50% in coordination of care (as documented) at patient's floor/unit and/or counseling patient: Coding Level of Care Code 97229 Inpt Consult Level 3 Diagnoses Diffuse abdominal pain R10.[address] of the abdomen R93.5
--- NOTE | 2019-08-22 17:40 | XRay Report ---
XR KUB/Abdomen 1 view CLINICAL HISTORY: SBO COMPARISON STUDY: 08/21/2019 FINDINGS: There is mild small bowel dilatation. The findings are consistent with the clinical history of a small bowel obstruction. Bowel loops measure up to 48 mm in diameter. There are multiple calcif ications within the right upper quadrant, likely representing contrast within colonic diverticula. Th ere are bilateral renal calculi. A 6 mm a 6 mm right renal calculus projects over the level of the ri ght renal pelvis. IMPRESSION: 1. Bilateral nephrolithiasis 2. Mild small bowel dilatation with small bowel loops measuring up to 48 mm in diameter. The findings are consistent with a small bowel obstructive pattern. ACT 112: Negative or not required by law. Electronically signed by: Edilson Hahn M.D. 08/22/2019 5:38 PM
[2019-08-22] MEDS: TAMSULOSIN HCL 0.4 MG CAP PO SCH (21:34)
[2019-08-22] MEDS: ROPINIROLE HCL 0.25 MG TABLET PO SCH (21:34)
--- NOTE | 2019-08-23 07:50 | XRay Report ---
XR KUB/Abdomen 1 view CLINICAL HISTORY: SBO bowel obstruction COMPARISON STUDY: 08/22/2019 FINDINGS: Improved bowel pattern. No significant small bowel or colonic distention at the current paul e. Unchanged nephrocalcinosis. IMPRESSION: 1. Improved bowel pattern with no evidence for obstruction. 2. Stable bilateral nephrocalcinosis. ACT 112: Negative or not required by law. The above report was generated using voice recognition software. It may contain grammatical, syntax or spelling errors. Electronically signed by: Kartik Atwood M.D. 08/23/2019 7:49 AM
[2019-08-23] MEDS: ENOXAPARIN INJ 40 MG/0.4 ML SYR SQ SCH (07:56)
[2019-08-23] MEDS: CEFDINIR 300 MG CAP PO SCH ×2 (09:14→20:15)
[2019-08-23] MEDS: POLYETHYLENE (MIRALAX) 17 GM PACK PO SCH (09:14)
[2019-08-23] MEDS: AMLODIPINE BESYLATE 5 MG TAB PO SCH (09:14)
[2019-08-23] MEDS: FLUTICASONE/VILANTEROL 200/25MCG 14 PUFFS/INHALER INH SCH (09:14)
[2019-08-23] MEDS: DOCUSATE SODIUM 100 MG CAP PO SCH ×2 (09:14→20:17)
[2019-08-23] MEDS: CHOLECALCIFEROL 1,000 UNITS 25 MCG TAB PO SCH (09:14)
[2019-08-23] MEDS: PANTOprazole 40 MG TAB PO SCH (09:14)
[2019-08-23] MEDS ORDERED: AMLODIPINE BESYLATE 5 MG TAB PO ONE (10:00)
--- NOTE | 2019-08-23 14:13 | Gastroenterology Progress Note ---
Date of Service August 23, 2019 Assessment & Plan (1) Abnormal CT of the abdomen: obstruction/ileus is improving Recs: 1. advance diet as tolerated today 2. if continues to improve then ok to d/c from GI standpoint tomorrow 3.daily KUBs 4.supportive care 5.will need colonoscopy as an outpatient to further evaluate, can follow up with me in the office in 2-3 weeks (2) Diffuse abdominal pain: (3) Enteritis: Admission and Anticipated Discharge Date Admission Date: August 21, 2019 Subjective patient feels better today, KUB noted to be improved as well. abdomen less distended, tolerating clears. Review of Systems Constitutional: no fever and no chills Respiratory: no cough, no dyspnea and no dyspnea on exertion Cardiovascular: no chest pain and no dyspnea Gastrointestinal: as per Subjective / HPI Psychiatric: no depression and no anxiety Physical Exam Constitutional: WD/WN, vitals as above Respiratory: normal respiratory effort, lungs clear to auscultation Cardiovascular: RRR, no murmur, no edema Gastrointestinal (Abdomen): normal bowel sounds, soft, nontender, no hepatosplenomegaly Musculoskeletal: no lower extremity edema Psychiatric: A+Ox3, euthymic affect Results & Data Results & Data ([facility]) Vital Signs (Past 12 Hours) Vital Signs Temp Pulse Resp BP BP Pulse Ox 08/23/19 11:44 161/109 H 08/23/19 07:42 36.8 C 77 18 156/105 H 152/111 H 93 PG Care Time/CCT Total # of Minutes Spent Total Time Spent with Patient: Total time spent is greater than 50% in coordination of care (as documented) at patient's floor/unit and/or counseling patient: Coding Level of Care Code 32888 Subseq Hosp Care Lvl [address] of the abdomen R93.5 Diffuse abdominal pain R10.84 Enteritis K52.9
--- NOTE | 2019-08-23 14:45 | Hospitalist Progress Note ---
Date of Service August 23, 2019 Assessment & Plan (1) Diffuse abdominal pain: Terrell Billy is 63-year-old male with known bilateral kidney stones admitted 08/18 for evaluation of periumbilical abdominal pain and vomiting. Abdominal pain: - Patient describes sudden-onset central abdominal pain that began shortly after eating 4 hot dogs and half of a banana-split. - CT scan of abdomen 08/18: demonstrated evidence of enteritis, w/ unchanged appearance of b/l, nonobstructing renal calculi. - CT evening of 08/19: demonstrated progression of enteritis with small bowel obstruction - KUB on 08/22 demonstrated: improved bowel pattern with no evidence for obstruction. - GI consult: recommended daily KUBs and advised pt will need colonoscopy as an outpatient - stool culture, WBC count, ova and parasites were ordered after patient self- treated with a 3 day course of ivermectin. - advance diet as tolerated Small Bowel Obstruction: - visualized on contrast CT scan - despite appetite, patient has failed two re-feed trials; npo for now - continue supportive care: IV fluids, IV morphine and Toradol prn for pain, zofran prn for nausea - surgery consulted, recommended GI consult, bowel regimen and signed off on case Renal stones: - known bilateral renal stones, scheduled for lithotripsy as outpatient 08/21 - cancelled as Mr. Billy was inpatient. will reschedule - UA showing >30 red blood cells per high-power field - placed on cefdinir for infection prophylaxis at most recent outpatient urology visit - continue Flomax COPD: - Former smoker, quit in 2012 - continue to encourage use of albuterol/ipratropium inhaler Obstructive Sleep Apnea: - patient has CPAP at home but finds it intolerable; had to cancel recent appointment to have it refitted - supplemental O2 as needed Hypertension - BP at 156/103 - likely secondary to patient's untreated ZEKE - increased amlodipine to 7.5mg daily Diet: Heart Healthy DVT ppx: Lovenox 40mg SQ, daily Code Status: Full Code (2) Kidney stones: (3) Hematuria: (4) Enteritis: (5) Failure of outpatient treatment: (6) Abdominal pain: Admission and Anticipated Discharge Date Admission Date: August 21, 2019 Supervising Physician Co-Signing Physician Notes Resident Physician Supervision Note: I independently interviewed and examined the patient and verified the brennan history and physical, reviewed labs and image studies, discussed the case with the resident Dr. Lutz and agree with the findings and care plan. Subjective Feels like his abdominal pain has considerably improved, has been passing gas all throughout the night, and had a couple large bowel movements that he feels relieved a large portion of the pain. In discussions, with family they remain concerned that his pain came out of nowhere and are not sure what he will be able to tolerate eating olea when he gets home. Pt's sole concern at this point is that he is going to miss his Niece's wedding today. Review of Systems Review of Systems: All systems reviewed & are unremarkable except as noted in Subjective Physical Exam Constitutional: WD/WN, vitals as above + obese Eyes: PERRL, conjunctivae normal, anicteric sclerae Respiratory: normal respiratory effort, lungs clear to auscultation Cardiovascular: Rate/Rhythm: regular rate and regular rhythm Heart Sounds: normal S1 and normal S2; no gallop, no murmur and no cardiac rub Gastrointestinal (Abdomen): Inspection/Auscultation: abdomen normal to inspection, + abdomen distended and normal bowel sounds Percussion/Palpation: abdomen soft; abdomen nontender, no guarding and no hepatosplenomegaly Results & Data ([facility]) Vital Signs (Past 12 Hours) Vital Signs Temp Pulse Resp BP BP Pulse Ox 08/23/19 11:44 161/109 H 08/23/19 07:42 36.8 C 77 18 156/105 H 152/111 H 93 Medications Administered Current Inpatient Medications Acetaminophen (Tylenol) 1,000 mg PO Q6H PRN PRN Reason: Pain or Fever Stop: 09/19/19 09:13 Albuterol (Ventolin Hfa) 2 puffs INH Q6H PRN PRN Reason: Wheezing Stop: 09/18/19 23:33 Amlodipine Besylate (Norvasc) 7.5 mg PO QAM [facility] Stop: 09/23/19 08:59 Aspirin (Ecotrin Ectab) 81 mg PO DAILY [facility] Stop: 09/19/19 08:59 Cefdinir (Omnicef Cap) 300 mg PO BID [facility] Stop: 08/30/19 08:59 Last Admin: 08/23/19 09:14 Dose: 300 mg Documented by: Docusate Sodium (Colace) 100 mg PO BID [facility] Stop: 09/21/19 12:29 Last Admin: 08/23/19 09:14 Dose: 100 mg Documented by: Enoxaparin Sodium (Lovenox) 40 mg SQ Q24H [facility] Stop: 09/19/19 07:59 Last Admin: 08/23/19 07:56 Dose: 40 mg Documented by: Fluticasone/Vilanterol (Breo Ellipta 200/25 Mcg Inh) 1 puffs INH QAM [facility] Stop: 09/19/19 08:59 Last Admin: 08/23/19 09:14 Dose: 1 puffs Documented by: Sodium Chloride (Nss 1000ml) 1,000 mls @ 125 mls/hr IV .Q8H [facility] Stop: 09/18/19 23:44 Last Infusion: 08/22/19 08:50 Dose: 0 mls/hr Documented by: Ioversol (Optiray 320 100ml) 95 ml IV ONCE PRN PRN Reason: Interaction Checking Stop: 08/24/19 21:36 Last Admin: 08/20/19 21:37 Dose: 1 ml Documented by: Ketorolac Tromethamine (Toradol) 15 mg IV Q6H PRN PRN Reason: Pain Stop: 08/25/19 09:13 Last Admin: 08/22/19 23:24 Dose: 15 mg Documented by: Morphine Sulfate (Morphine Sulfate) 3 mg IV Q2H PRN PRN Reason: Pain Stop: 09/02/19 22:44 Last Admin: 08/20/19 23:12 Dose: 3 mg Documented by: Ondansetron HCl (Zofran) 4 mg IV Q6H PRN PRN Reason: Nausea Stop: 09/18/19 23:33 Last Admin: 08/20/19 23:19 Dose: 4 mg Documented by: Pantoprazole Sodium (Protonix) 40 mg PO QAM CARMEN Stop: 09/19/19 08:59 Last Admin: 08/23/19 09:14 Dose: 40 mg Documented by: Polyethylene Glycol (Miralax Powder Packet) 17 gm PO DAILY [facility] Stop: 09/21/19 12:29 Last Admin: 08/23/19 09:14 Dose: 17 gm Documented by: Ropinirole HCl (Requip) 0.5 mg PO HS [facility] Stop: 09/19/19 20:59 Last Admin: 08/22/19 21:34 Dose: 0.5 mg Documented by: Tamsulosin HCl (Flomax) 0.4 mg PO HS [facility] Stop: 09/19/19 20:59 Last Admin: 08/22/19 21:34 Dose: 0.4 mg Documented by: Vitamin D (Vitamin D3) 2,000 units PO QAM [facility] Stop: 09/19/19 08:59 Last Admin: 08/23/19 09:14 Dose: 2,000 units Documented by: Resident Activity Tracking Resident Involvement: Resident Care Provided Care Provided: Adult Hospital Medicine (1) Hematuria Hematuria type: unspecified type Qualified Code(s): R31.9 - Hematuria, unspecified (2) Abdominal pain Abdominal location: right upper quadrant Qualified Code(s): R10.11 - Right upper quadrant pain
[2019-08-23] MEDS: KETOROLAC TROMETHAMINE 15 MG/ML VIAL IV PRN (16:51)
[2019-08-23] MEDS ORDERED: HydrALAZINE 10 MG TAB PO PRN (17:00)
--- NOTE | 2019-08-23 18:34 | XRay Report ---
XR KUB/Abdomen 1 view CLINICAL HISTORY: SBO bowel obstruction COMPARISON STUDY: 08/23/2019 12/28/2006 100 FINDINGS: The soft tissues, psoas shadows, renal outlines and intestinal gas pattern appear normal. T here is no evidence for bowel obstruction. No abnormal abdominal calcifications are seen. Slight incr ease in several loops of small bowel right flank. Unchanging bilateral nephrocalcinosis IMPRESSION: 1. Mild nonobstructive ileus with interval development of several nondistended air-filled loops of sm all bowel right lateral abdomen. 2. Stable bilateral renal nephrocalcinosis ACT 112: Negative or not required by law. The above report was generated using voice recognition software. It may contain grammatical, syntax or spelling errors. Electronically signed by: Kartik Atwood M.D. 08/23/2019 6:33 PM
[2019-08-23] MEDS: ROPINIROLE HCL 0.25 MG TABLET PO SCH (20:15)
[2019-08-23] MEDS: TAMSULOSIN HCL 0.4 MG CAP PO SCH (20:16)
[2019-08-24] MEDS: CEFDINIR 300 MG CAP PO SCH (08:50)
[2019-08-24] MEDS: PANTOprazole 40 MG TAB PO SCH (08:50)
[2019-08-24] MEDS: CHOLECALCIFEROL 1,000 UNITS 25 MCG TAB PO SCH (08:50)
[2019-08-24] MEDS: FLUTICASONE/VILANTEROL 200/25MCG 14 PUFFS/INHALER INH SCH (08:51)
[2019-08-24] MEDS: POLYETHYLENE (MIRALAX) 17 GM PACK PO SCH (08:51)
[2019-08-24] MEDS: ENOXAPARIN INJ 40 MG/0.4 ML SYR SQ SCH (08:51)
[2019-08-24] MEDS: DOCUSATE SODIUM 100 MG CAP PO SCH (08:55)
[2019-08-24] MEDS ORDERED: AMLODIPINE BESYLATE 5 MG TAB PO SCH (09:00)
--- NOTE | 2019-08-24 09:53 | XRay Report ---
XR KUB/Abdomen 1 view CLINICAL HISTORY: SBO COMPARISON STUDY: 08/23/2019 FINDINGS: There is bilateral nephrolithiasis. There is increasing colonic gas. There is a dilated lef t mid abdominal small bowel measuring 5 cm. IMPRESSION: 1. Nonspecific bowel gas pattern with a dilated left mid abdominal small bowel loop. This could repre sent a focal ileus, or partial small bowel obstruction. 2. Bilateral nephrolithiasis ACT 112: Negative or not required by law. Electronically signed by: Edilson Hahn M.D. 08/24/2019 9:52 AM
--- NOTE | 2019-08-24 10:08 | Surgery Progress Note ---
Date of Service doing better, no abdominal pain, charanjit CHOI, August 24, 2019 Assessment & Plan (1) Enteritis: 63 year-old male who presented to ED on 08/19/2019 with abdominal pain after eating several hot dogs and banana split. No recent changes in bowel habits. History of baseline constipation. CT scan with contrast 08/20/2019 showing enteritis and possible small bowel obstructive change. KUB from 08/21/2019 showing no obstructive change and contrast within the colon. No surgical indication at this time. Patient has never had a colonoscopy. Would recommend GI consultation for further evaluation. May need endoscopy and would recommend good bowel regimen for his baseline constipation. (2) Diffuse abdominal pain: upon presentation resolved now pain after enema last night, not with advancement of diet Dr. Kramer has seen patient and was present during my examination. Agrees with above. 08/24/2019 10:07am no abdominal pain, I agree with discharged home today, F/U GI Subjective Feels like his abdominal pain has considerably improved, has been passing gas all throughout the night, and had a couple large bowel movements that he feels relieved a large portion of the pain. In discussions, with family they remain concerned that his pain came out of nowhere and are not sure what he will be able to tolerate eating olea when he gets home. Pt's sole concern at this point is that he is going to miss his Niece's wedding today. Physical Exam Constitutional: WD/WN, vitals as above well developed and well nourished Eyes: PERRL, conjunctivae normal, anicteric sclerae ENMT: external ear and nose normal, oropharynx normal Neck: trachea midline, no thyromegaly Respiratory: normal respiratory effort, lungs clear to auscultation Cardiovascular: RRR, no murmur, no edema Gastrointestinal (Abdomen): Percussion/Palpation: abdomen soft NT, ND,BS + Skin: no rashes, warm and dry Neurologic: awake Psychiatric: Orientation: alert and oriented x 3 Results & Data Vital Signs (Past 12 Hours) Vital Signs Temp Pulse Resp BP BP Pulse Ox 08/24/19 07:50 36.6 C 77 16 157/96 H 94 08/23/19 23:34 150/97 H 08/23/19 23:33 37.0 C 68 16 170/104 H 96
--- NOTE | 2019-08-24 11:20 | Discharge Summary ---
Date of Service August 24, 2019 Admission HPI Per Admitting Provider Patient has been dealing with kidney stone issues for some time, lithotripsy planned for Sunday. 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 Patient felt the pain was much more severe than his kidney stone pain. He laid in bed and hoped it would pass but it did not, he didn't have anything that could kill the pain so he decided to come in to hospital. He did take one oxycodone in the morning. Here in emergency department he was given IV morphine and that completely took care of the pain. 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 Patient and say they were not surprised by this as he eats a large amount of sushi. treated him with a course of ivermectin she has for her cows. He described pain as being central and epigastric cramping type pain, very severe, screaming out. He has had no nausea, vomiting, diarrhea, chest pain, shortness of breath, skin lesions, headache, body aches or any other concerning symptoms. He is still making normal urine. He is currently pain free but heavily medicated and falling asleep intermittently which partially affected my review of systems breadth. Principal Diagnosis Gastroenteritis Discharge Exam Constitutional WD/WN, vitals as above + obese Eyes PERRL, conjunctivae normal, anicteric sclerae Respiratory normal respiratory effort, lungs clear to auscultation Cardiovascular Rate/Rhythm: regular rate and regular rhythm Heart Sounds: normal S1 and normal S2; no gallop, no murmur and no cardiac rub Gastrointestinal (Abdomen) Inspection/Auscultation: abdomen normal to inspection and normal bowel sounds; abdomen not distended Percussion/Palpation: abdomen soft; abdomen nontender, no guarding and no hepatosplenomegaly Discharge Data Allergies Allergy/AdvReac Type Severity Reaction Status Date / Time No Known Allergies Allergy Verified 08/13/19 15:24 Consultations 08/19/19 21:50 ED Decision to Admit Stat 08/22/19 10:01 Consult General Surgery Routine 08/22/19 13:21 Consult Gastroenterology Routine Ordered Studies 08/19/19 19:02 CT abd pelvis wo con Stat 08/20/19 18:19 CT abd pelvis oral and IV con Routine Hospital Course (1) Diffuse abdominal pain: Terrell Billy is 63-year-old male with known bilateral kidney stones admitted 08/18 for evaluation of periumbilical abdominal pain and vomiting. Abdominal pain with small bowel obstruction: - Patient describes sudden-onset central abdominal pain that began shortly after eating 4 hot dogs and half of a banana-split. - CT scan of abdomen 08/18: demonstrated evidence of enteritis, w/ unchanged appearance of b/l, nonobstructing renal calculi. - CT evening of 08/19: demonstrated progression of enteritis with small bowel obstruction - stool culture, WBC count, ova and parasites negative. - KUB on 08/22 demonstrated: improved bowel pattern with no evidence for obstruction. - Kept on IV fluids - diet slowly advanced due to failed attempt x 2 - tolerated well before discharge. - surgery consulted - no surgical indication - GI consult: advised pt will need colonoscopy as an outpatient Renal stones: - known bilateral renal stones, scheduled for lithotripsy as outpatient 08/21 - cancelled as Mr. Billy was inpatient. advised to reschedule - placed on cefdinir for infection prophylaxis at most recent outpatient urology visit - continue Flomax COPD: - Former smoker, quit in 2012 - continue to encourage use of albuterol/ipratropium inhaler Obstructive Sleep Apnea: - patient has CPAP at home but finds it intolerable; had to cancel recent appointment to have it refitted - supplemental O2 as needed - recommend retrial of CPAP mask fitting Hypertension - BP at 156/103 - likely secondary to patient's untreated ZEKE - increased amlodipine to 10mg daily (2) Kidney stones: (3) Hematuria: (4) Enteritis: (5) Failure of outpatient treatment: (6) Abdominal pain: Total Time Total Time Spent Total Time Spent (In Minutes): 30 Discharge Plan Discharge Items Patient Disposition: Home - Self-Care Reason For Visit: ABDOMINAL PAIN/ENTERITIS Discharge Diagnosis: Gastroenteritis Activity: Resume your previous activity Non-emergency contact: Primary Care Provider Call non-emergency contact if: your symptoms worsen Follow-up/Referrals: Poonam Haddad PA-C [Primary Care Provider] - Diet: Heart Healthy and Low Sodium (2gm) Addtl Attending Provider Instructions: You were hospitalized at [facility] for abdominal pain and vomiting. A cat scan of your abdomen was ordered which showed bilateral kidney stones and evidence of inflammation in your bowel, consistent with a gastroenteritis. No evidence of a bowel obstruction was found. Your white blood cell count, liver function, kidney function, and lipase levels were all normal. There was no evidence of a pancreatitis. We are aware you had an umbilical hernia repair several months ago - there were no signs of re-herniation or strangulation of this prior hernia. Please follow up with your family doctor within one week of discharge, for discussions on refitting of CPAP mask, and for continued monitoring of your abdominal pain. Additionally, we have increased the medication to control your blood pressure to Norvasc 10mg daily. Pending Studies at Discharge: Yes (stool culture) Stand-Alone Forms: [facility], Smoking Cessation Medications and DC Order Prescriptions: New amlodipine [Norvasc] 5 mg Tablet 10 mg PO QAM 30 Days Qty: 60 RF: 0 Continued tamsulosin 0.4 mg capsule 0.4 mg PO HS Qty: 30 RF: 2 aspirin 81 mg Tablet,Delayed Release (Dr/Ec) 81 mg PO .ON HOLD RF: 0 ropinirole 0.5 mg tablet 0.5 mg PO HS RF: 0 naproxen sodium [Aleve] 220 mg Tablet 220 mg PO Q12H PRN (Reason: Pain) RF: 0 ibuprofen 200 mg Tablet 200 mg PO Q6H PRN (Reason: Pain) RF: 0 albuterol sulfate [Ventolin HFA] 90 mcg/actuation HFA aerosol inhaler 2 puff INHALATION Q6H PRN (Reason: Wheezing) RF: 0 omeprazole 20 mg Tablet,Delayed Release (Dr/Ec) 20 mg PO QAM RF: 0 cholecalciferol (vitamin D3) [Vitamin D3] 50 mcg (2,000 unit) Capsule 2,000 unit PO QAM RF: 0 Breo Ellipta 200-25 mcg/dose blister with device 1 ea INHALATION QAM RF: 0 cefdinir 300 mg capsule 300 mg PO BID Qty: 20 RF: 0 oxycodone 5 mg capsule 5 mg PO Q6H PRN (Reason: pain) Qty: 15 RF: 0 Discontinued amlodipine 5 mg tablet 5 mg PO QAM RF: 0 Discharge Orders: Discharge Order (Routine); Ordered 08/24/19 Ordered By: Mohamud Hilliard/Other Patient Handouts: Obstruction Sm Bowel Admission Data Admit Date/Time: 08/21/19 19:31 Attending Provider: Joleen Alarcon Admit Provider: Vamsi Kowalski Primary Care Provider: Poonam Haddad Other Providers: Alyson Schroeder ; Kartik Martin ; Ayan Bennett Other Interventions: Discharge Summary Assessment (RN) Last Done: 08/24/19 10:56 DC Date/Time DO NOT enter until pt leaves facility: 08/24/19 11:39 Supervising Physician Co-Signing Physician Notes Resident Physician Supervision Note: I independently interviewed and examined the patient and verified the brennan history and physical, reviewed labs and image studies, discussed the case with the resident Dr. Lutz and agree with the findings and care plan. Resident Activity Tracking Resident Involvement: Resident Care Provided Care Provided: Adult Hospital Medicine
== END 2019-08-24 11:39 | disposition home or self-care (01) | DRG 392 ==
LOC: 3W 18:43 → ED 18:43 → SUATTDRO 22:58 → 3W 23:25